=== PATIENT | male | born 1940 | race Hispanic/Latino ===

== ENCOUNTER → 2017-11-05 | Outpatient (CLI) | payer MEDICARE ==
[~2017-11-05] MED LIST: AMIO200T5 PO; CARV3.12 PO; DOXY100T2 PO; FURO40TA5 PO; HYDR-4154 PO; LEVO100T12 PO; LINA5TAB PO; LISI-617 PO; PRAV20TA4 PO; SITA50TA PO; TAMS0.4C32 PO; VITAMIN D PO
== END | disposition home or self-care (01) ==
LOC: SHCH 08:40
PROVIDERS: ATTEND Internal Medicine Cardiovascular Disease
DX: I34.0 Nonrheumatic mitral (valve) insufficiency (principal); I10 Essential (primary) hypertension
CPT/HCPCS: 93306

== ENCOUNTER → 2017-11-07 | Outpatient (CLI) | payer MEDICARE | END | disposition home or self-care (01) | LOC: SHCH 10:22 | PROVIDERS: ATTEND Internal Medicine Cardiovascular Disease | DX: I65.23 Occlusion and stenosis of bilateral carotid arteries (principal) | CPT/HCPCS: 93880 ==

== ENCOUNTER 2017-12-03 06:39 | Day surgery (SDC) | payer MEDICARE ==
[2017-11-29 15:32] VITALS: BP 144/64
[2017-11-29 15:39] LABS: BASOPHILS % (AUTO) 1.2 % (0.0-5.0); EOSINOPHILS % (AUTO) 11.8 % (0.0-8.0); HEMATOCRIT 38.1 % (42-54); LYMPHOCYTES % (AUTO) 17.3 % (21.0-51.0); MEAN CORPUSCULAR HEMOGLOBIN 30.4 pg (27.0-33.0); MEAN CORPUSCULAR HGB CONC 33.3 g/dL (32.0-36.0); MEAN CORPUSCULAR VOLUME 91.3 fL (79-99); MONOCYTES % (AUTO) 11.8 % (3.0-13.0); NEUTROPHILS % (AUTO) 57.9 % (40.0-77.0); PLATELET COUNT (AUTO) 140 K/uL (130-400); RED BLOOD CELL COUNT(AUTO) 4.17 MIL/uL (4.50-6.20); RED CELL DISTRIBUTION WIDTH 14.3 % (11.0-15.5); WHITE BLOOD COUNT (AUTO) 6.5 K/uL (4.8-10.8)
[2017-11-29 15:56] LABS: CREATININE 2.6 mg/dL (0.5-1.5); POTASSIUM 5.9 mmol/L (3.5-5.1)
[2017-11-29 16:17] LABS: INR 0.98 (0.85-1.15); PARTIAL THROMBOPLASTIN TIME 28.1 SEC (26.3-35.5); PROTHROMBIN TIME 10.3 SEC (9.6-11.6)
[2017-12-03] VITALS (16 sets, daily range): BP systolic 109–151; BP diastolic 47–78
[~2017-12-03] VITALS: Ht 172.7 cm; Wt 116.6 kg
[~2017-12-03 06:39] MED LIST changes: -AMIO200T5 PO; -DOXY100T2 PO; -HYDR-4154 PO; -LINA5TAB PO; -LISI-617 PO; +SODIUM CHLORIDE 0.9% 1000ML 1,000 ML IV SCH
[2017-12-03 07:34] LABS: CREATININE 2.3 mg/dL (0.5-1.5); POTASSIUM 5.3 mmol/L (3.5-5.1)
[2017-12-03] MEDS ORDERED: LIDOCAINE HCL 2% VISCOUS 15 ML UDCUP PO ONE (08:30)
[2017-12-03] MEDS ORDERED: ALBUTEROL SULFATE 0.083% 2.5 MG/3 ML INH IH ONE (09:00)
[2017-12-03] MEDS ORDERED: MIDAZOLAM HCL 1 MG/ML 2ML VIAL ONE (09:08)
[2017-12-03] MEDS ORDERED: HYDRALAZINE HCL 20 MG/ML VIAL ONE (09:09)
[2017-12-03] MEDS ORDERED: FENTANYL CITRATE PF 50 MCG/1 ML 2ML VIAL ONE (09:09)
== END 2017-12-03 12:05 | disposition home or self-care (01) ==
LOC: DAH 06:39
PROVIDERS: ATTEND Internal Medicine Cardiovascular Disease
DX: I31.8 Other specified diseases of pericardium (principal); E66.9 Obesity, unspecified; E11.9 Type 2 diabetes mellitus without complications; I10 Essential (primary) hypertension; E78.5 Hyperlipidemia, unspecified; M19.90 Unspecified osteoarthritis, unspecified site; M10.9 Gout, unspecified; E03.9 Hypothyroidism, unspecified; I25.10 Atherosclerotic heart disease of native coronary artery without angina pectoris; Z95.0 Presence of cardiac pacemaker; Z68.39 Body mass index [BMI] 39.0-39.9, adult
CPT/HCPCS: 36415 ×2; 80048 ×2; 82948; 85025; 85610; 85730; 93312; 93325; 94640; A4606; J2250; J3010; 99156; J0360

== ENCOUNTER 2019-03-10 10:07 | Inpatient (IN) | payer MEDICARE | END 2019-03-13 16:15 | disposition home or self-care (01) | LOC: EDH 10:07 → EDHIP 12:58 → 2AH 14:42 | DX: K92.2 Gastrointestinal hemorrhage, unspecified (principal); E44.0 Moderate protein-calorie malnutrition; N18.4 Chronic kidney disease, stage 4 (severe); N17.9 Acute kidney failure, unspecified; I50.22 Chronic systolic (congestive) heart failure; I13.0 Hypertensive heart and chronic kidney disease with heart failure and stage 1 through stage 4 chronic kidney disease, or unspecified chronic kidney disease; D62 Acute posthemorrhagic anemia; I48.92 Unspecified atrial flutter; K92.1 Melena; I12.9 Hypertensive chronic kidney disease with stage 1 through stage 4 chronic kidney disease, or unspecified chronic kidney disease; E11.22 Type 2 diabetes mellitus with diabetic chronic kidney disease; K20.9 Esophagitis, unspecified ==

== ENCOUNTER → 2019-05-06 | Outpatient (CLI) | payer MEDICARE ==
[~2019-05-06] MED LIST changes: +ASCO500T9 PO; +PANT40TA PO; -SODIUM CHLORIDE 0.9% 1000ML 1,000 ML IV SCH
[2019-05-06 13:09] LABS: BASOPHILS % (AUTO) 0.7 % (0.0-5.0); HEMATOCRIT 21.6 % (42-54); MEAN CORPUSCULAR HEMOGLOBIN 23.5 pg (27.0-33.0); MEAN CORPUSCULAR HGB CONC 30.6 g/dL (32.0-36.0); MEAN CORPUSCULAR VOLUME 76.7 fL (79-99); MONOCYTES % (AUTO) 11.5 % (3.0-13.0); NEUTROPHILS % (AUTO) 73.8 % (40.0-77.0); NUCLEATED RED BLOOD CELLS 0.1 % (0.0-0.19); PLATELET COUNT (AUTO) 241 K/uL (130-400); RED BLOOD CELL COUNT(AUTO) 2.82 MIL/uL (4.50-6.20); RED CELL DISTRIBUTION WIDTH 24.4 % (11.0-15.5); WHITE BLOOD COUNT (AUTO) 6.6 K/uL (4.8-10.8)
[2019-05-06 13:16] LABS: CREATININE 2.9 mg/dL (0.5-1.5)
[2019-05-06 13:19] LABS: INR 1.04 (0.85-1.15); PARTIAL THROMBOPLASTIN TIME 30.2 SEC (26.3-35.5); PROTHROMBIN TIME 10.9 SEC (9.6-11.6)
== END | disposition home or self-care (01) ==
LOC: DAH 10:00 → EDSTATUS 12:00
PROVIDERS: ATTEND Internal Medicine Cardiovascular Disease
DX: Z01.818 Encounter for other preprocedural examination (principal); I48.3 Typical atrial flutter; I25.10 Atherosclerotic heart disease of native coronary artery without angina pectoris; I10 Essential (primary) hypertension; E78.00 Pure hypercholesterolemia, unspecified; I48.91 Unspecified atrial fibrillation; Z79.899 Other long term (current) drug therapy; Z95.0 Presence of cardiac pacemaker; Z98.890 Other specified postprocedural states; Z79.01 Long term (current) use of anticoagulants
CPT/HCPCS: 36415; 80048; 85025; 85610; 85730

== ENCOUNTER 2019-11-17 12:05 | Inpatient (IN) | payer MEDICARE ==
[~2019-11-17] VITALS: Ht 170.2 cm; Wt 109.2 kg
[2019-11-17] VITALS (9 sets, daily range): BP systolic 94–120; BP diastolic 50–57
[~2019-11-17 12:05] MED LIST changes: +ASCO500T20 PO; -ASCO500T9 PO
[2019-11-17 12:56] LABS: BASOPHILS % (AUTO) 0.4 % (0.0-5.0); EOSINOPHILS % (AUTO) 4.7 % (0.0-8.0); MEAN CORPUSCULAR HEMOGLOBIN 18.4 pg (27.0-33.0); MEAN CORPUSCULAR HGB CONC 26.2 g/dL (32.0-36.0); MEAN CORPUSCULAR VOLUME 70.4 fL (79-99); MONOCYTES % (AUTO) 16.5 % (3.0-13.0); PLATELET COUNT (AUTO) 216 K/uL (130-400); RED BLOOD CELL COUNT(AUTO) 2.06 MIL/uL (4.50-6.20); RED CELL DISTRIBUTION WIDTH 18.6 % (11.0-15.5); WHITE BLOOD COUNT (AUTO) 5.1 K/uL (4.8-10.8)
[2019-11-17 13:00] LABS: RETICULOCYTE % (AUTO) 2.1 % (0.42-2.23)
[2019-11-17 13:08] LABS: INR 1.17 (0.85-1.15); PARTIAL THROMBOPLASTIN TIME 28.9 SEC (26.3-35.5); PROTHROMBIN TIME 12.6 SEC (9.6-11.6)
[2019-11-17 13:24] LABS: B-TYPE NATRIURETIC PEPTIDE 470 pg/mL (0-100)
[2019-11-17 13:28] LABS: HEMATOCRIT 14.5 % (42-54)
[2019-11-17 13:38] LABS: BILIRUBIN,TOTAL 0.7 mg/dL (0.2-1.0); CREATININE 4.9 mg/dL (0.5-1.5); POTASSIUM 4.5 mmol/L (3.5-5.1); TOTAL PROTEIN, SERUM 6.4 g/dL (6.0-8.3)
[2019-11-17] MEDS ORDERED: ACETAMINOPHEN 325 MG TAB PO PRN (14:15)
[2019-11-17] MEDS ORDERED: ONDANSETRON HCL 4 MG/2 ML VIAL IVP PRN (14:15)
[2019-11-17 14:21] LABS: % IRON SATURATION 2.9 % (30-44)
[2019-11-17] MEDS ORDERED: GLUCAGON 1MG KIT 1 MG ML IM PRN (15:30)
[2019-11-17] MEDS ORDERED: DEXTROSE 50%-WATER 50 ML DISP.SYRIN IV PRN (15:30)
[2019-11-17] MEDS ORDERED: EPOETIN ALFA 10,000 UNIT/ML VIAL SQ SCH (15:45)
[2019-11-17 16:09] LABS: BILIRUBIN,URINE Negative (NEGATIVE); COLOR,URINE Yellow (YELLOW); GLUCOSE, URINE (UA) Negative (NEGATIVE); KETONES,URINE Negative (NEGATIVE); LEUKOCYTE ESTERASE ,URINE Moderate (NEGATIVE); NITRATE,URINE Positive (NEGATIVE); OCCULT BLOOD,URINE Negative (NEGATIVE); PROTEIN,URINE Trace mg/dL (NEGATIVE)
[2019-11-17 16:15] LABS: APPEARANCE,URINE HAZY (CLEAR)
[2019-11-17 16:29] LABS: BACTERIA,URINE Many /HPF (None Seen); RBC,URINE None Seen /HPF (0-1); SQUAMOUS EPITHELIAL CELL,UR 0-2 /HPF (0-2)
[2019-11-17] MEDS: INSULIN HUMULIN R 100 UNIT/ML 3ML SQ SCH ×2 (16:30→21:00)
[2019-11-17] MEDS ORDERED: LACTATED RINGERS 1000ML 1,000 ML IV ONE (17:54)
[2019-11-17] MEDS: CEFTRIAXONE SODIUM 1 GM IVP SCH (18:58)
[2019-11-17] MEDS: OCTREOTIDE ACETATE 500 MCG in SODIUM CHLORIDE 0.9% 97.5 ML IV SCH (18:59)
[2019-11-17] MEDS: PANTOPRAZOLE SODIUM 80 MG in SODIUM CHLORIDE 0.9% 100 ML IV SCH (18:59)
[2019-11-17] MEDS: LACTATED RINGERS 1000ML 1,000 ML IV SCH (18:59)
[2019-11-17] MEDS ORDERED: FUROSEMIDE 10 MG/ML 10ML VIAL IVP STA (19:06)
--- NOTE | 2019-11-17 20:48 | NUR ---
SPOKE TO DAUGHTER BY PHONE. SHE WILL CALL BACK WITH LIST OF HOME MEDICATIONS.
[2019-11-17] MEDS ORDERED: PANTOPRAZOLE SODIUM 40 MG TABLET.DR PO SCH (21:00)
[2019-11-18] VITALS (15 sets, daily range): BP systolic 107–133; BP diastolic 46–155
[2019-11-18] MEDS: PANTOPRAZOLE SODIUM 80 MG in SODIUM CHLORIDE 0.9% 100 ML IV SCH ×2 (00:24→11:47)
[2019-11-18] MEDS: OCTREOTIDE ACETATE 500 MCG in SODIUM CHLORIDE 0.9% 97.5 ML IV SCH (00:25)
[2019-11-18 05:20] LABS: EOSINOPHILS % (AUTO) 3.9 % (0.0-8.0); LYMPHOCYTES % (AUTO) 5.2 % (21.0-51.0); MEAN CORPUSCULAR HEMOGLOBIN 21.5 pg (27.0-33.0); MEAN CORPUSCULAR HGB CONC 28.6 g/dL (32.0-36.0); MEAN CORPUSCULAR VOLUME 74.9 fL (79-99); MONOCYTES % (AUTO) 12.9 % (3.0-13.0); NEUTROPHILS % (AUTO) 76.6 % (40.0-77.0); NUCLEATED RED BLOOD CELLS 0.8 % (0.0-0.19); PLATELET COUNT (AUTO) 192 K/uL (130-400); RED BLOOD CELL COUNT(AUTO) 2.75 MIL/uL (4.50-6.20); RED CELL DISTRIBUTION WIDTH 19.5 % (11.0-15.5); WHITE BLOOD COUNT (AUTO) 5.2 K/uL (4.8-10.8)
[2019-11-18 05:24] LABS: HEMATOCRIT 20.6 % (42-54)
[2019-11-18] MEDS: INSULIN HUMULIN R 100 UNIT/ML 3ML SQ SCH ×4 (05:32→21:00)
[2019-11-18 05:36] LABS: INR 1.16 (0.85-1.15); PARTIAL THROMBOPLASTIN TIME 28.3 SEC (26.3-35.5); PROTHROMBIN TIME 12.5 SEC (9.6-11.6)
[2019-11-18 05:42] LABS: CREATININE 4.5 mg/dL (0.5-1.5); PHOSPHORUS 6.7 mg/dL (2.5-4.9); POTASSIUM 4.5 mmol/L (3.5-5.1)
--- NOTE | 2019-11-18 07:23 | NUR ---
ASSESSMENT ENCOUNTERED PT ASLEEP BUT AROUSEABLE, A&OX3, CALM COOPERATIVE AND DOES NOT APPEAR TO BE IN ANY DISTRESS NOR ANY NEURO DEFICITS PRESENT. PT DENIES PAIN, SOB, NAUSEA. PT IS NPO PENDING EGD BY DR Moses BOYD.
[2019-11-18] MEDS ORDERED: PROPOFOL 10 MG/ML 20ML VIAL IV ONE ×2 (08:20→08:31)
[2019-11-18] MEDS ORDERED: LEVO100 PO (08:23)
[2019-11-18] MEDS ORDERED: FOLI1 PO (08:23)
[2019-11-18] MEDS ORDERED: TAMS-1 PO (08:23)
[2019-11-18] MEDS ORDERED: PANT40TA54 PO (08:23)
[2019-11-18] MEDS ORDERED: CARV6.25 PO (08:23)
--- NOTE | 2019-11-18 08:50 | NUR ---
PATIENT BACK FROM ENDOSCOPY.
[2019-11-18] MEDS: LACTATED RINGERS 1000ML 1,000 ML IV SCH ×2 (09:42→16:58)
[2019-11-18] MEDS ORDERED: TRAMADOL HCL 50 MG TABLET PO SCH (09:45)
[2019-11-18] MEDS ORDERED: FUROSEMIDE 10 MG/ML 4ML VIAL IV SCH (10:30)
[2019-11-18 13:04] LABS: HEMATOCRIT 24.4 % (42-54)
--- NOTE | 2019-11-18 14:20 | NUR ---
REPEAT HGB. DR. JONES MADE AWARE OF HGB OF 7. HE STATED TO REPEAT HGB AND HCT LEVEL AT 1800, AND IF LESS THAN 7, TRANSFUSE 1 UNIT OF PRBCS.
--- NOTE | 2019-11-18 14:40 | NUR ---
DR. HUGH REESE AT BEDSIDE TO ASSESS PATIENT. GAVE ORDERS FOR LAB WORK. ORTHOSTATIC BP WAS CHECKED WITH DR. REESE AT BEDSIDE, NO ORTHOSTATIC CHANGES NOTED. DR. REESE GAVE ORDERS TO TRANSFER PATIENT TO [facility].
[2019-11-18] MEDS ORDERED: PRAV20TA4 PO (14:51)
[2019-11-18] MEDS ORDERED: DOCU-116 PO (14:51)
[2019-11-18] MEDS ORDERED: SITA50TA PO (14:51)
[2019-11-18] MEDS ORDERED: FURO40TA5 PO (14:51)
[2019-11-18] MEDS ORDERED: PREDNISONE 20 MG TABLET PO SCH (15:00)
--- NOTE | 2019-11-18 15:00 | NUR ---
PATIENT SCHEDULED FOR COLONOSCOPY TOMORROW.
[2019-11-18] MEDS: LACTULOSE 20 GM/30 ML UDCUP PO SCH (16:17)
--- NOTE | 2019-11-18 16:40 | NUR ---
TRANSFERRED PATIENT TRANSFERRED TO ROOM 419 AT THIS TIME. PATIENT IN STABLE CONDITION. REPORT GIVEN TO BHAKTI MORENO.
[2019-11-18] MEDS: CEFTRIAXONE SODIUM 1 GM IVP SCH (16:56)
--- NOTE | 2019-11-18 17:10 | NUR ---
INITIAL- CALL WITH SON CALL TO PATIENTS KITA HUNTER STATES PATIENT LVIES ALONE, IS INDEPENDENT IN ADLS. DOES NOT USE DME, AND KITA HUNTER TRANSPORTS . EXPECT DC WILL BE TO HOME. WILL FOLLOW NEEDED
[2019-11-18 18:25] LABS: HEMATOCRIT 25.4 % (42-54)
[2019-11-18 20:46] LABS: HEMATOCRIT 24.3 % (42-54)
[2019-11-18] MEDS: ACETAMINOPHEN-CODEINE 300/30MG TAB PO PRN (20:53)
[2019-11-18] MEDS: IRON SUCROSE COMPLEX 100 MG in SODIUM CHLORIDE 0.9% 50 ML IV SCH (23:22)
[2019-11-19 03:34] VITALS: BP 119/61
[2019-11-19 04:24] LABS: HEMATOCRIT 24.1 % (42-54); MEAN CORPUSCULAR HEMOGLOBIN 22.4 pg (27.0-33.0); MEAN CORPUSCULAR HGB CONC 28.6 g/dL (32.0-36.0); MEAN CORPUSCULAR VOLUME 78.2 fL (79-99); NUCLEATED RED BLOOD CELLS 0.8 % (0.0-0.19); RED BLOOD CELL COUNT(AUTO) 3.08 MIL/uL (4.50-6.20); RED CELL DISTRIBUTION WIDTH 20.5 % (11.0-15.5)
[2019-11-19] MEDS ORDERED: SODIUM CHLORIDE 0.9% 250 ML IV ONE (05:02)
[2019-11-19] MEDS: INSULIN HUMULIN R 100 UNIT/ML 3ML SQ SCH ×4 (05:52→20:49)
[2019-11-19] MEDS: LEVOTHYROXINE 100 MCG TABLET PO SCH (06:03)
[2019-11-19 07:16] LABS: CREATININE 4.3 mg/dL (0.5-1.5); POTASSIUM 4.6 mmol/L (3.5-5.1)
[2019-11-19 08:07] VITALS: BP 121/61
[2019-11-19] MEDS: CEFTRIAXONE SODIUM 1 GM IVP SCH ×2 (08:58→20:47)
[2019-11-19] MEDS: IRON SUCROSE COMPLEX 100 MG in SODIUM CHLORIDE 0.9% 50 ML IV SCH (08:58)
[2019-11-19 11:08] LABS: HEMATOCRIT 25.4 % (42-54)
[2019-11-19 11:49] VITALS: BP 126/62
[2019-11-19] MEDS: PREDNISONE 20 MG TABLET PO SCH (12:45)
[2019-11-19] MEDS: Vitamin B Complex/Vit C/Folic Acid PO SCH (12:45)
[2019-11-19] MEDS: PANTOPRAZOLE SODIUM 40 MG TABLET.DR PO SCH (12:46)
[2019-11-19] MEDS: LACTULOSE 20 GM/30 ML UDCUP PO SCH (15:00)
[2019-11-19] MEDS ORDERED: PEG 3350/NA SULF,BICARB,CL/KCL 4000 ML SOLN PO SCH (16:00)
[2019-11-19 16:36] VITALS: BP 129/61
[2019-11-19 19:44] VITALS: BP 126/69
[2019-11-19] MEDS: LACTATED RINGERS 1000ML 1,000 ML IV SCH ×2 (20:48→23:20)
[2019-11-19 23:08] VITALS: BP 135/69
--- NOTE | 2019-11-19 23:23 | NUR ---
PATIENT COMPLETED ORAL PREP FOR COLONOSCOPY. HE IS AWARE OF PROCEDURE AND NPO AFTER MN. WILL CONT TO MONITOR.
[2019-11-20] VITALS (20 sets, daily range): BP systolic 101–142; BP diastolic 50–86
[2019-11-20] MEDS: LEVOTHYROXINE 100 MCG TABLET PO SCH (05:23)
[2019-11-20] MEDS: INSULIN HUMULIN R 100 UNIT/ML 3ML SQ SCH ×4 (06:54→21:00)
[2019-11-20 08:59] LABS: BASOPHILS % (AUTO) 0.1 % (0.0-5.0); EOSINOPHILS % (AUTO) 0.1 % (0.0-8.0); HEMATOCRIT 25.8 % (42-54); LYMPHOCYTES % (AUTO) 4.8 % (21.0-51.0); MEAN CORPUSCULAR HEMOGLOBIN 23.3 pg (27.0-33.0); MEAN CORPUSCULAR HGB CONC 29.5 g/dL (32.0-36.0); MEAN CORPUSCULAR VOLUME 79.1 fL (79-99); MONOCYTES % (AUTO) 9.6 % (3.0-13.0); NEUTROPHILS % (AUTO) 85.1 % (40.0-77.0); NUCLEATED RED BLOOD CELLS 0.6 % (0.0-0.19); PLATELET COUNT (AUTO) 184 K/uL (130-400); RED BLOOD CELL COUNT(AUTO) 3.26 MIL/uL (4.50-6.20); RED CELL DISTRIBUTION WIDTH 21.2 % (11.0-15.5); WHITE BLOOD COUNT (AUTO) 7.1 K/uL (4.8-10.8)
[2019-11-20] MEDS: CEFTRIAXONE SODIUM 1 GM IVP SCH (09:13)
[2019-11-20] MEDS: IRON SUCROSE COMPLEX 100 MG in SODIUM CHLORIDE 0.9% 50 ML IV SCH (09:14)
[2019-11-20] MEDS: LACTATED RINGERS 1000ML 1,000 ML IV SCH (09:14)
[2019-11-20 09:19] LABS: ALBUMIN 2.8 g/dL (3.5-5.0); ASPARTATE AMINOTRANSFERASE 10 U/L (10-37); BILIRUBIN,TOTAL 0.8 mg/dL (0.2-1.0); CARBON DIOXIDE 26 mmol/L (21-32); CHLORIDE 107 mmol/L (101-111); CREATININE 3.3 mg/dL (0.5-1.5); GLOMERULAR FILTR. RATE CALC 19 mL/min (>60); GLUCOSE,RANDOM 117 mg/dL (70-105); PHOSPHORUS 5.4 mg/dL (2.5-4.9); POTASSIUM 4.3 mmol/L (3.5-5.1); SODIUM SERUM 145 mmol/L (136-145); TOTAL PROTEIN, SERUM 6.4 g/dL (6.0-8.3)
[2019-11-20 09:23] LABS: ALANINE AMINOTRANSFERASE < 6 U/L (12-78); UREA NITROGEN, BLOOD 103 mg/dL (7-18)
--- NOTE | 2019-11-20 10:00 | NUR ---
per Arvin,RN patient was taken down for procedure. Will initiate PT Evaluation 11/21/2019 Addendum: 11/20/19 at 1339 by ALFREDO CHAO, PT PT Amended: Links added.
[2019-11-20] MEDS ORDERED: PROPOFOL 10 MG/ML 20ML VIAL IV ONE (10:49)
[2019-11-20] MEDS ORDERED: LIDOCAINE HCL-MPF 2% 5ML VIAL ONE (10:50)
[2019-11-20] MEDS: PANTOPRAZOLE SODIUM 40 MG TABLET.DR PO SCH (12:36)
[2019-11-20] MEDS: PREDNISONE 20 MG TABLET PO SCH (12:36)
[2019-11-20] MEDS: Vitamin B Complex/Vit C/Folic Acid PO SCH (12:36)
[2019-11-20] MEDS: LACTULOSE 20 GM/30 ML UDCUP PO SCH (13:19)
[2019-11-20 17:03] LABS: RETICULOCYTE % (AUTO) 2.45 % (0.42-2.23)
[2019-11-20] MEDS: CEFDINIR 250MG/5ML 60ML BOTTLE PO SCH (18:00)
[2019-11-20 18:41] LABS: % IRON SATURATION 30.4 % (30-44)
[2019-11-21 04:22] VITALS: BP 130/65
[2019-11-21 04:34] LABS: HEMATOCRIT 25.9 % (42-54); MEAN CORPUSCULAR HEMOGLOBIN 23.7 pg (27.0-33.0); MEAN CORPUSCULAR HGB CONC 29.7 g/dL (32.0-36.0); MEAN CORPUSCULAR VOLUME 79.7 fL (79-99); NUCLEATED RED BLOOD CELLS 0.4 % (0.0-0.19); PLATELET COUNT (AUTO) 161 K/uL (130-400); RED BLOOD CELL COUNT(AUTO) 3.25 MIL/uL (4.50-6.20); RED CELL DISTRIBUTION WIDTH 22.1 % (11.0-15.5); WHITE BLOOD COUNT (AUTO) 6.8 K/uL (4.8-10.8)
[2019-11-21] MEDS: LACTATED RINGERS 1000ML 1,000 ML IV SCH (04:37)
[2019-11-21 04:56] LABS: BAND NEUTROPHILS % (MANUAL) 4 % (0-2); BASOPHILS % (MANUAL) 2 % (0-2); LYMPHOCYTES % (MANUAL) 12 % (22-44); MAN.DIFF COMMENT-IMPRESSION MANUAL DIFFERENTIAL; MONOCYTES % (MANUAL) 4 % (2-9); PLATELET MORPHOLOGY COMMENT ADEQUATE; SEGMENTED NEUTROPHILS % 78 % (40-70)
[2019-11-21 05:39] LABS: CREATININE 2.8 mg/dL (0.5-1.5); PHOSPHORUS 4.4 mg/dL (2.5-4.9); POTASSIUM 4.3 mmol/L (3.5-5.1)
[2019-11-21] MEDS: LEVOTHYROXINE 100 MCG TABLET PO SCH (06:20)
[2019-11-21 07:30] VITALS: BP 161/81
[2019-11-21] MEDS: INSULIN HUMULIN R 100 UNIT/ML 3ML SQ SCH ×4 (07:30→20:30)
[2019-11-21] MEDS: PANTOPRAZOLE SODIUM 40 MG TABLET.DR PO SCH (11:11)
[2019-11-21] MEDS: Vitamin B Complex/Vit C/Folic Acid PO SCH (11:11)
[2019-11-21 11:30] VITALS: BP 159/84
[2019-11-21] MEDS ORDERED: COMPOUND IV MISC 1 EACH IVSOLN MISC PRN (11:45)
[2019-11-21] MEDS: IRON SUCROSE COMPLEX 100 MG in SODIUM CHLORIDE 0.9% 50 ML IV SCH (11:55)
[2019-11-21] MEDS: LACTULOSE 20 GM/30 ML UDCUP PO SCH (12:21)
[2019-11-21 15:30] VITALS: BP 131/76
[2019-11-21] MEDS: CEFDINIR 250MG/5ML 60ML BOTTLE PO SCH (17:12)
[2019-11-21 19:34] VITALS: BP 127/69
[2019-11-22 00:04] VITALS: BP 136/80
[2019-11-22 04:00] VITALS: BP 145/72
[2019-11-22 04:43] LABS: BASOPHILS % (AUTO) 0.4 % (0.0-5.0); EOSINOPHILS % (AUTO) 7.4 % (0.0-8.0); HEMATOCRIT 27.4 % (42-54); LYMPHOCYTES % (AUTO) 5.9 % (21.0-51.0); MEAN CORPUSCULAR HEMOGLOBIN 23.3 pg (27.0-33.0); MEAN CORPUSCULAR HGB CONC 28.8 g/dL (32.0-36.0); MEAN CORPUSCULAR VOLUME 80.8 fL (79-99); MONOCYTES % (AUTO) 12.4 % (3.0-13.0); NEUTROPHILS % (AUTO) 73.5 % (40.0-77.0); PLATELET COUNT (AUTO) 168 K/uL (130-400); RED BLOOD CELL COUNT(AUTO) 3.39 MIL/uL (4.50-6.20); RED CELL DISTRIBUTION WIDTH 23.3 % (11.0-15.5); WHITE BLOOD COUNT (AUTO) 7.5 K/uL (4.8-10.8)
[2019-11-22 04:49] LABS: CREATININE 2.5 mg/dL (0.5-1.5); POTASSIUM 4.1 mmol/L (3.5-5.1)
[2019-11-22] MEDS: LEVOTHYROXINE 100 MCG TABLET PO SCH (06:00)
[2019-11-22] MEDS: INSULIN HUMULIN R 100 UNIT/ML 3ML SQ SCH ×4 (06:00→20:26)
[2019-11-22] MEDS: ACETAMINOPHEN-CODEINE 300/30MG TAB PO PRN ×3 (06:56→23:35)
[2019-11-22 07:00] VITALS: BP 151/77
[2019-11-22] MEDS: PANTOPRAZOLE SODIUM 40 MG TABLET.DR PO SCH (08:53)
[2019-11-22] MEDS: Vitamin B Complex/Vit C/Folic Acid PO SCH (08:53)
[2019-11-22] MEDS: IRON SUCROSE COMPLEX 100 MG in SODIUM CHLORIDE 0.9% 50 ML IV SCH (08:54)
[2019-11-22 11:00] VITALS: BP 127/70
[2019-11-22] MEDS: LACTULOSE 20 GM/30 ML UDCUP PO SCH (13:08)
[2019-11-22 16:00] VITALS: BP 134/76
[2019-11-22] MEDS: CEFDINIR 250MG/5ML 60ML BOTTLE PO SCH (16:15)
[2019-11-22 20:00] VITALS: BP 145/78
[2019-11-23] VITALS: BP 132/67
[2019-11-23 03:50] VITALS: BP 144/76
[2019-11-23 05:12] LABS: CREATININE 2.4 mg/dL (0.5-1.5); INR 1.25 (0.85-1.15); PARTIAL THROMBOPLASTIN TIME 30.7 SEC (26.3-35.5); POTASSIUM 4.2 mmol/L (3.5-5.1); PROTHROMBIN TIME 13.4 SEC (9.6-11.6)
[2019-11-23 06:07] LABS: HEMATOCRIT 29.8 % (42-54); MEAN CORPUSCULAR HEMOGLOBIN 23.7 pg (27.0-33.0); MEAN CORPUSCULAR HGB CONC 28.5 g/dL (32.0-36.0); RED BLOOD CELL COUNT(AUTO) 3.59 MIL/uL (4.50-6.20); WHITE BLOOD COUNT (AUTO) 9.4 K/uL (4.8-10.8)
[2019-11-23] MEDS: LEVOTHYROXINE 100 MCG TABLET PO SCH (06:07)
[2019-11-23] MEDS: INSULIN HUMULIN R 100 UNIT/ML 3ML SQ SCH ×2 (06:21→11:30)
[2019-11-23 08:07] VITALS: BP 133/79
[2019-11-23] MEDS ORDERED: CYANOCOBALAMIN (VITAMIN B-12) 1,000 MCG TABLET PO SCH (09:00)
[2019-11-23] MEDS ORDERED: FOLIC ACID 1 MG TABLET PO SCH (09:00)
[2019-11-23] MEDS: IRON SUCROSE COMPLEX 100 MG in SODIUM CHLORIDE 0.9% 50 ML IV SCH (09:05)
[2019-11-23 10:16] LABS: CRP QUANTITATIVE 43.3 mg/L (0.00-9.0); URIC ACID 13.6 mg/dL (2.6-7.2)
[2019-11-23] MEDS ORDERED: MIDAZOLAM HCL 1 MG/ML 2ML VIAL ONE (10:40)
[2019-11-23] MEDS ORDERED: FENTANYL CITRATE PF 50 MCG/1 ML 2ML VIAL ONE (10:40)
--- NOTE | 2019-11-23 11:05 | NUR ---
CT GD BONE MARROW BX/ASPIRATION PROCEDURE PERFORMED BY DR Heaven GANT. PUNCTURE SITE RT BUTTOCK AND PATIENT TOLERATED PROCEDURE WELL. SPECIMEN X 6 COLLECTED AND SENT TO LAB. END OF PROCEDURE AT 1050. BIOPSY NEEDLE REMOVED AND DRESSING APPLIED. NO BLEEDING NOTED. REPORT GIVEN TO Antwan UMRRIETA RN AND PATIENT TRANSPORTED TO [facility] VIA BED AT 1105. AAO X3 WITH NO C/O PAIN.
--- NOTE | 2019-11-23 11:52 | NUR ---
CALL TO SON- DC PLAN? POSSIBLE NEED FOR SNF, PT NOTES REVIEWED NOTED DECLINE IN FUNCTION. WILL SPEAK TO PATIENT AND SON Addendum: 11/23/19 at 1201 by DONNELL BENITEZ RN CM Amended: Links added.
--- NOTE | 2019-11-23 12:00 | NUR ---
SPOKE TO PT AT BEDSIDE- STATES HE HAD WHEEL CHAIR AND WALKER, AND SHOWER CHAIR, THAT HIS CGRANDSON IS PAID TO LOOK AFTER HIM SO HE WILL GO HOME. WILL DECLINE SNF. Addendum: 11/23/19 at 1201 by DONNELL BENITEZ RN CM Amended: Links added.
[2019-11-23 12:18] VITALS: BP 143/82
[2019-11-23] MEDS: PANTOPRAZOLE SODIUM 40 MG TABLET.DR PO SCH (12:38)
[2019-11-23] MEDS: Vitamin B Complex/Vit C/Folic Acid PO SCH (12:38)
[2019-11-23] MEDS: ACETAMINOPHEN-CODEINE 300/30MG TAB PO PRN (12:39)
[2019-11-23] MEDS ORDERED: CEFD300C3 PO (14:02)
--- NOTE | 2019-11-23 14:36 | NUR ---
ALTHEA SCREEN - LOS X 6 Pt admitted with symptomatic anemia. Diet held at time of screen. Pt pending Bone Marrow Biopsy as per EMR. 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 Altered renal labs. Hx DM. Recommend modify diet to Renal, 75gm CCD. RD to continue to monitor. Please notify as additional nutrition concerns arise. Thank you. Addendum: 11/23/19 at 1439 by [address]O [address] RD Amended: Links added.
[2019-11-23] MEDS: LACTULOSE 20 GM/30 ML UDCUP PO SCH (15:00)
[2019-11-23] MEDS: CEFDINIR 250MG/5ML 60ML BOTTLE PO SCH (15:19)
[2019-11-23 15:43] VITALS: BP 152/79
[2019-11-23] MEDS ORDERED: ALLO100T PO (15:57)
[2019-11-23] MEDS ORDERED: COLC0.6C3 PO (15:57)
[2019-11-23] MEDS ORDERED: COLCHICINE 0.6 MG TABLET PO SCH ×2 (16:55→18:00)
--- NOTE | 2019-11-23 17:01 | NUR ---
WILL SEND ALL PT INFO TO PRIMARY MD TO POSSIBLE EXPEDITE ESTRELLA W PT ON DISCHARGE
--- NOTE | 2019-11-23 17:15 | NUR ---
1700 TRIED TO REACH SON VIA TELEPHONE,TWICE, NO ANSWER. I SPOKE TO ELIN(RN) WHO GAVE ME NUMBER TO RAHUL MCCOLLUM(DAUGHTER) [phone], HE TRIED CALLING DAUGHTERS NUMBER BUT NO ANSWER EITHER.I WAS NOT ABLE TO GET IM LETTER DUE TO PATIENT BEING ON CONTACT ISOLATION AND CONTACT NUMBERS NOT ANSWERING.
--- NOTE | 2019-11-23 18:00 | NUR ---
DISCHARGE INSTRUCTIONS GIVEN TO RAHUL, DAUGHTER IN LAW, PIV REMOVED AND INTACT, DISCHARGED HOME TO FAMILY VEHICLE VIA WHEELCHAIR.
== END 2019-11-23 18:20 | disposition home or self-care (01) | DRG 378 ==
LOC: EDH 12:05 → EDHIP 13:57 → 4CH 14:54 → DAHIP 16:15 → 4CH 11-18 16:48 → 4AH 11-20 12:14 → 4CH 11-20 12:16
PROVIDERS: ADMIT Internal Medicine; ATTEND Internal Medicine
PROC: 0DJ08ZZ Inspection of Upper Intestinal Tract, Via Natural or Artificial Opening Endoscopic (ICD-10-PCS; 2019-11-18)
PROC: 0DJD8ZZ Inspection of Lower Intestinal Tract, Via Natural or Artificial Opening Endoscopic (ICD-10-PCS; 2019-11-20)
PROC: 30233N1 Transfusion of Nonautologous Red Blood Cells into Peripheral Vein, Percutaneous Approach (ICD-10-PCS; principal; 2019-11-23)
PROC: 07DR3ZX Extraction of Iliac Bone Marrow, Percutaneous Approach, Diagnostic (ICD-10-PCS; 2019-11-23)
DX: K92.1 Melena (principal); N17.9 Acute kidney failure, unspecified; D62 Acute posthemorrhagic anemia; I13.0 Hypertensive heart and chronic kidney disease with heart failure and stage 1 through stage 4 chronic kidney disease, or unspecified chronic kidney disease; I50.22 Chronic systolic (congestive) heart failure; N39.0 Urinary tract infection, site not specified; I42.9 Cardiomyopathy, unspecified; E11.22 Type 2 diabetes mellitus with diabetic chronic kidney disease; D63.1 Anemia in chronic kidney disease; E66.01 Morbid (severe) obesity due to excess calories; D46.9 Myelodysplastic syndrome, unspecified; E03.9 Hypothyroidism, unspecified; E78.5 Hyperlipidemia, unspecified; E86.0 Dehydration; I25.10 Atherosclerotic heart disease of native coronary artery without angina pectoris; N18.9 Chronic kidney disease, unspecified; K31.89 Other diseases of stomach and duodenum; K64.0 First degree hemorrhoids; I95.9 Hypotension, unspecified; K57.30 Diverticulosis of large intestine without perforation or abscess without bleeding; D63.8 Anemia in other chronic diseases classified elsewhere; G89.29 Other chronic pain; M10.9 Gout, unspecified; M06.9 Rheumatoid arthritis, unspecified; Z68.37 Body mass index [BMI] 37.0-37.9, adult; Z87.11 Personal history of peptic ulcer disease; Z95.0 Presence of cardiac pacemaker; Z91.19 Patient's noncompliance with other medical treatment and regimen
CPT/HCPCS: 36415; 36430; 38222; 43235; 45378; 71045; 76770; 77012; 80048; 80053; 81001; 82550; 82607; 82728; 82948; 83540; 83550; 83735; 83880; 83883; 84100; 84145; 84300; 84443; 84484; 84540; 84550; 85014; 85018; 85025; 85027; 85045; 85610; 85651; 85730; 86140; 86200; 86334; 86431; 86850; 86880; 86900; 86901; 86922; 87077; 87088; 87186; 88184; 88185; 88305; 88311; 88313; 88341; 88342; 88360; 93005; 93970; 97039; A4606; C9113; G0378; J0696; J0885; J1756; J1815; J1940; J2250; J2354; J2704; J3010; J3490; J7030; J7050; J7120; P9016

== ENCOUNTER → 2019-12-31 | Outpatient (CLI) | payer MEDICARE | END | disposition home or self-care (01) | LOC: RAH 13:29 | PROVIDERS: ATTEND Internal Medicine | DX: M25.532 Pain in left wrist (principal) ==

== ENCOUNTER → 2020-02-18 | Outpatient (CLI) | payer MEDICARE ==
[~2020-02-18] MED LIST changes: +ALLO100T PO; -ASCO500T20 PO; -CARV3.12 PO; +CARV6.25 PO; +CEFD300C3 PO; +COLC0.6C3 PO; +DOCU-116 PO; +ERGO500014 PO; +FOLI0.4T2 PO; +FOLI1 PO; +IRON1CAP32 PO; +LEVO100 PO; -PANT40TA PO; +PANT40TA54 PO; +PRED20TA3 PO; +TAMS-1 PO; -TAMS0.4C32 PO; -VITAMIN D PO
== END | disposition home or self-care (01) ==
LOC: SHCH 09:02
PROVIDERS: ATTEND Internal Medicine Cardiovascular Disease
DX: I08.3 Combined rheumatic disorders of mitral, aortic and tricuspid valves (principal); I42.0 Dilated cardiomyopathy
CPT/HCPCS: 93306; 93356

== ENCOUNTER 2020-03-11 11:36 | Inpatient (IN) | payer MEDICARE ==
[~2020-03-11] VITALS: Ht 170.2 cm; Wt 113.9 kg
[~2020-03-11 11:36] MED LIST changes: -ERGO500014 PO; -FOLI0.4T2 PO; -IRON1CAP32 PO; -LEVO100T12 PO; -PRED20TA3 PO
[2020-03-11 12:39] LABS: BASOPHILS % (AUTO) 0.2 % (0.0-5.0); EOSINOPHILS % (AUTO) 0.8 % (0.0-8.0); HEMATOCRIT 30.4 % (42-54); LYMPHOCYTES % (AUTO) 3.6 % (21.0-51.0); MEAN CORPUSCULAR HEMOGLOBIN 32.6 pg (27.0-33.0); MEAN CORPUSCULAR HGB CONC 32.2 g/dL (32.0-36.0); MONOCYTES % (AUTO) 5.9 % (3.0-13.0); NEUTROPHILS % (AUTO) 88.6 % (40.0-77.0); PLATELET COUNT (AUTO) 144 K/uL (130-400); RED BLOOD CELL COUNT(AUTO) 3.01 MIL/uL (4.50-6.20); RED CELL DISTRIBUTION WIDTH 16.1 % (11.0-15.5); WHITE BLOOD COUNT (AUTO) 10.4 K/uL (4.8-10.8)
[2020-03-11 12:53] LABS: CREATININE 2.2 mg/dL (0.5-1.5)
[2020-03-11 12:54] LABS: INR 1.03 (0.85-1.15); PARTIAL THROMBOPLASTIN TIME 24.5 SEC (26.3-35.5); PROTHROMBIN TIME 11.1 SEC (9.6-11.6)
[2020-03-11 12:58] LABS: ALBUMIN 3.1 g/dL (3.5-5.0); BILIRUBIN,TOTAL 0.4 mg/dL (0.2-1.0)
[2020-03-11 13:18] LABS: APPEARANCE,URINE CLEAR (CLEAR); BILIRUBIN,URINE NEGATIVE (NEGATIVE); COLOR,URINE YELLOW (YELLOW); GLUCOSE, URINE (UA) NEGATIVE (NEGATIVE); KETONES,URINE NEGATIVE (NEGATIVE); LEUKOCYTE ESTERASE ,URINE NEGATIVE (NEGATIVE); NITRATE,URINE NEGATIVE (NEGATIVE); OCCULT BLOOD,URINE NEGATIVE (NEGATIVE); PROTEIN,URINE 100 mg/dL (NEGATIVE); UROBILINOGEN,URINE 0.2 mg/dL (0.2-1.0)
[2020-03-11 14:04] LABS: B-TYPE NATRIURETIC PEPTIDE 508 pg/mL (0-100)
[2020-03-11 14:18] LABS: BACTERIA,URINE Few /HPF (None Seen); RBC,URINE 0-1 /HPF (0-1); WBC,URINE 0-1 /HPF (0-1)
[2020-03-11] MEDS ORDERED: ACETAMINOPHEN 325 MG TAB PO PRN (15:45)
[2020-03-11] MEDS ORDERED: LACTULOSE 20 GM/30 ML UDCUP PO PRN (15:45)
[2020-03-11] MEDS ORDERED: MORPHINE SULFATE 4 MG/1ML SYG IV PRN (15:45)
[2020-03-11] MEDS ORDERED: ZOLPIDEM TARTRATE 5 MG TAB PO PRN (15:45)
[2020-03-11] MEDS ORDERED: ONDANSETRON HCL 4 MG/2 ML VIAL IV PRN (15:45)
[2020-03-11] MEDS ORDERED: FUROSEMIDE 10 MG/ML 4ML VIAL IV STA (16:01)
[2020-03-11] MEDS: INSULIN HUMULIN R 100 UNIT/ML 3ML SQ SCH ×2 (16:30→21:00)
[2020-03-11] MEDS ORDERED: FUROSEMIDE 10 MG/ML 4ML VIAL ONE ×2 (16:57→21:13)
[2020-03-11] MEDS ORDERED: FUROSEMIDE 10 MG/ML 4ML VIAL IV ONE (20:00)
[2020-03-11] MEDS: HEPARIN SODIUM 5000UNIT/ML 1ML VIAL SQ SCH (21:00)
[2020-03-11] MEDS ORDERED: HEPARIN SODIUM 5000UNIT/ML 1ML VIAL ONE (21:13)
[2020-03-11 22:26] VITALS: BP 149/70
[2020-03-12 00:28] VITALS: BP 104/74
[2020-03-12] MEDS ORDERED: IRON1CAP32 PO (02:07)
[2020-03-12] MEDS ORDERED: ALLO100T PO (02:07)
[2020-03-12] MEDS ORDERED: PRED20TA3 PO (02:07)
[2020-03-12] MEDS ORDERED: FOLI0.4T2 PO (02:07)
[2020-03-12] MEDS ORDERED: LEVO100T12 PO (02:07)
[2020-03-12] MEDS ORDERED: PRAV20TA4 PO (02:07)
[2020-03-12] MEDS ORDERED: ERGO500014 PO (02:07)
[2020-03-12] MEDS ORDERED: PANT40TA54 PO (02:07)
[2020-03-12] MEDS ORDERED: SITA50TA PO (02:07)
[2020-03-12] MEDS ORDERED: FURO40TA5 PO (02:07)
[2020-03-12] MEDS ORDERED: TAMS-1 PO (02:07)
[2020-03-12] MEDS ORDERED: CARV6.25 PO (02:07)
[2020-03-12 04:28] VITALS: BP 159/76
[2020-03-12] MEDS: LEVOTHYROXINE 100 MCG TABLET PO SCH (05:31)
[2020-03-12 06:10] LABS: BASOPHILS % (AUTO) 0.5 % (0.0-5.0); EOSINOPHILS % (AUTO) 3.9 % (0.0-8.0); HEMATOCRIT 31.3 % (42-54); LYMPHOCYTES % (AUTO) 7.7 % (21.0-51.0); MEAN CORPUSCULAR HEMOGLOBIN 32.1 pg (27.0-33.0); MEAN CORPUSCULAR HGB CONC 31.6 g/dL (32.0-36.0); MEAN CORPUSCULAR VOLUME 101.6 fL (79-99); MONOCYTES % (AUTO) 13.4 % (3.0-13.0); NEUTROPHILS % (AUTO) 73.7 % (40.0-77.0); PLATELET COUNT (AUTO) 147 K/uL (130-400); RED BLOOD CELL COUNT(AUTO) 3.08 MIL/uL (4.50-6.20); WHITE BLOOD COUNT (AUTO) 7.8 K/uL (4.8-10.8)
[2020-03-12 06:25] LABS: CREATININE 2.6 mg/dL (0.5-1.5); POTASSIUM 5.2 mmol/L (3.5-5.1)
[2020-03-12] MEDS: INSULIN HUMULIN R 100 UNIT/ML 3ML SQ SCH ×4 (06:34→21:00)
[2020-03-12] MEDS ORDERED: LEVOTHYROXINE 100 MCG TABLET PO SCH (07:30)
[2020-03-12 08:22] VITALS: BP 154/75
[2020-03-12] MEDS: CARVEDILOL 6.25 MG TABLET PO SCH ×2 (08:37→21:19)
[2020-03-12] MEDS: HEPARIN SODIUM 5000UNIT/ML 1ML VIAL SQ SCH ×3 (08:38→21:21)
[2020-03-12] MEDS: PANTOPRAZOLE SODIUM 40 MG TABLET.DR PO SCH (08:39)
[2020-03-12] MEDS: FOLIC ACID 1 MG TABLET PO SCH (08:39)
[2020-03-12] MEDS: FERROUS SULFATE 325 MG TABLET.DR PO SCH (08:39)
[2020-03-12] MEDS ORDERED: CARVEDILOL 3.125 MG TABLET PO SCH (09:00)
[2020-03-12] MEDS: INTEGRA PO SCH (09:00)
[2020-03-12] MEDS ORDERED: TAMSULOSIN HCL 0.4 MG CAP.ER.24H PO SCH (09:00)
[2020-03-12] MEDS ORDERED: FUROSEMIDE 40 MG TABLET PO SCH (09:00)
[2020-03-12] MEDS: FUROSEMIDE 40 MG TABLET PO SCH (09:19)
--- NOTE | 2020-03-12 09:57 | NUR ---
notified dr. martinez of the consult for cardiac clearance for this patient. 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 garibay and this patient has history of chf and has pacemaker. dr. martinez said that make sure the patient is in his census as well as dr. garibay or [facility] census.
[2020-03-12 11:33] VITALS: BP 147/81
--- NOTE | 2020-03-12 12:46 | NUR ---
notified dr villa of the consult. no orders given at this time
[2020-03-12 14:53] LABS: APPEARANCE,URINE Clear (CLEAR); BILIRUBIN,URINE Negative (NEGATIVE); COLOR,URINE Yellow (YELLOW); GLUCOSE, URINE (UA) Negative (NEGATIVE); KETONES,URINE Negative (NEGATIVE); LEUKOCYTE ESTERASE ,URINE Trace (NEGATIVE); NITRATE,URINE Negative (NEGATIVE); OCCULT BLOOD,URINE Moderate (NEGATIVE); PH,URINE 5.5 (5.0-8.0); PROTEIN,URINE POS 2+ mg/dL (NEGATIVE); UROBILINOGEN,URINE 0.2 mg/dL (0.2-1.0)
[2020-03-12 15:07] LABS: BACTERIA,URINE Few /HPF (None Seen); SQUAMOUS EPITHELIAL CELL,UR Few /HPF (0-2)
--- NOTE | 2020-03-12 15:20 | NUR ---
dr martinez rounded and saw the patient. explained and discussed with the patient the plan of care. patient agreed to have the surgery. dr. martinez clear the patient for surgery. he verbalized that he will increase the metoprolol. will call dr. mendez to notify him with dr. martinez's standpoint.
--- NOTE | 2020-03-12 15:49 | NUR ---
attempted to call dr. mendez at this time no answer will call back again.
[2020-03-12 16:17] VITALS: BP 101/63
[2020-03-12 20:24] VITALS: BP 169/85
[2020-03-12] MEDS: PRAVASTATIN 20 MG PO SCH (21:00)
[2020-03-12] MEDS: TAMSULOSIN HCL 0.4 MG CAP.ER.24H PO SCH (21:18)
[2020-03-13 00:28] VITALS: BP 166/73
[2020-03-13] MEDS ORDERED: HYDRALAZINE HCL 20 MG/ML VIAL IV PRN (01:15)
[2020-03-13 04:28] VITALS: BP 149/75
[2020-03-13 04:36] LABS: BASOPHILS % (AUTO) 0.6 % (0.0-5.0); HEMATOCRIT 32.9 % (42-54); LYMPHOCYTES % (AUTO) 7.4 % (21.0-51.0); MEAN CORPUSCULAR HEMOGLOBIN 31.6 pg (27.0-33.0); MEAN CORPUSCULAR HGB CONC 31.6 g/dL (32.0-36.0); MONOCYTES % (AUTO) 17.5 % (3.0-13.0); NEUTROPHILS % (AUTO) 67.8 % (40.0-77.0); PLATELET COUNT (AUTO) 142 K/uL (130-400); RED BLOOD CELL COUNT(AUTO) 3.29 MIL/uL (4.50-6.20); WHITE BLOOD COUNT (AUTO) 6.9 K/uL (4.8-10.8)
[2020-03-13 05:01] LABS: CREATININE 2.4 mg/dL (0.5-1.5); PHOSPHORUS 3.2 mg/dL (2.5-4.9); THYROID STIMULATING HORMONE 1.14 uIU/mL (0.36-3.74); URIC ACID 10.1 mg/dL (2.6-7.2)
[2020-03-13 05:11] LABS: B-TYPE NATRIURETIC PEPTIDE 841 pg/mL (0-100)
[2020-03-13] MEDS: INSULIN HUMULIN R 100 UNIT/ML 3ML SQ SCH ×4 (05:43→21:00)
[2020-03-13] MEDS: LEVOTHYROXINE 100 MCG TABLET PO SCH (05:56)
[2020-03-13] MEDS: HYDROCODONE/ACETAMINOPHEN 5/325 MG TAB PO PRN ×2 (06:02→21:09)
[2020-03-13 08:10] VITALS: BP 148/75
[2020-03-13] MEDS: CARVEDILOL 6.25 MG TABLET PO SCH ×2 (09:00→20:31)
[2020-03-13] MEDS: INTEGRA PO SCH (09:00)
[2020-03-13] MEDS: FERROUS SULFATE 325 MG TABLET.DR PO SCH (10:29)
[2020-03-13] MEDS: FOLIC ACID/VITAMIN B COMP W-C 1 CAP TAB PO SCH (10:29)
[2020-03-13] MEDS: FUROSEMIDE 40 MG TABLET PO SCH (10:29)
[2020-03-13] MEDS: PANTOPRAZOLE SODIUM 40 MG TABLET.DR PO SCH (10:29)
[2020-03-13] MEDS: FOLIC ACID 1 MG TABLET PO SCH (10:29)
[2020-03-13] MEDS: HEPARIN SODIUM 5000UNIT/ML 1ML VIAL SQ SCH ×3 (10:35→20:33)
[2020-03-13 11:31] VITALS: BP 133/58
[2020-03-13 15:57] VITALS: BP 140/68
--- NOTE | 2020-03-13 16:14 | NUR ---
DR SANTOS NOTIFIED OF CARDIAC CLEARANCE. STATES DO NOT MAKE NPO, WILL SEE PT IN MORNING AND PLAN SURGERY. PT HAS NOT BEEN TESTED FOR MD ANGEL STATES HE WILL NOT REQUIRE TESTIUBG==
--- NOTE | 2020-03-13 18:51 | NUR ---
Initial: Spoke w pt via phone. Prior to admission he was living w his 22yo grandson. He was using a FWW and his dtr in law assisted him w ADLs. Pt has provider services but is unable to recall #hrs. He has a chair and borrowed a wc. Per pt he prefers to go home at dc but is open to SNF if needed. CM to continue to follow and wait for Md recommendations. Addendum: 03/13/20 at 1853 by ALEXI HERNÁNDEZ CM Amended: Links added.
[2020-03-13 20:28] VITALS: BP 160/75
[2020-03-13] MEDS: TAMSULOSIN HCL 0.4 MG CAP.ER.24H PO SCH (20:30)
[2020-03-13] MEDS: PRAVASTATIN 20 MG PO SCH (20:32)
[2020-03-14] VITALS (7 sets, daily range): BP systolic 104–136; BP diastolic 56–80
[2020-03-14 03:59] LABS: BASOPHILS % (AUTO) 0.2 % (0.0-5.0); EOSINOPHILS % (AUTO) 2.6 % (0.0-8.0); HEMATOCRIT 31.4 % (42-54); MEAN CORPUSCULAR HEMOGLOBIN 32.3 pg (27.0-33.0); MEAN CORPUSCULAR HGB CONC 32.2 g/dL (32.0-36.0); MEAN CORPUSCULAR VOLUME 100.3 fL (79-99); MONOCYTES % (AUTO) 13.4 % (3.0-13.0); NEUTROPHILS % (AUTO) 78.1 % (40.0-77.0); PLATELET COUNT (AUTO) 126 K/uL (130-400); RED BLOOD CELL COUNT(AUTO) 3.13 MIL/uL (4.50-6.20); RED CELL DISTRIBUTION WIDTH 15.7 % (11.0-15.5); WHITE BLOOD COUNT (AUTO) 10.3 K/uL (4.8-10.8)
[2020-03-14 04:28] LABS: CREATININE 2.4 mg/dL (0.5-1.5); POTASSIUM 4.9 mmol/L (3.5-5.1)
[2020-03-14] MEDS: LEVOTHYROXINE 100 MCG TABLET PO SCH (05:48)
[2020-03-14] MEDS: CEFTRIAXONE SODIUM 1 GM IVP SCH (06:46)
[2020-03-14] MEDS: INSULIN HUMULIN R 100 UNIT/ML 3ML SQ SCH ×4 (07:30→20:31)
[2020-03-14] MEDS: INTEGRA PO SCH (09:00)
[2020-03-14] MEDS: PANTOPRAZOLE SODIUM 40 MG TABLET.DR PO SCH (10:53)
[2020-03-14] MEDS: FERROUS SULFATE 325 MG TABLET.DR PO SCH (10:53)
[2020-03-14] MEDS: FOLIC ACID 1 MG TABLET PO SCH (10:53)
[2020-03-14] MEDS: FUROSEMIDE 40 MG TABLET PO SCH (10:53)
[2020-03-14] MEDS: FOLIC ACID/VITAMIN B COMP W-C 1 CAP TAB PO SCH (10:53)
[2020-03-14] MEDS: CARVEDILOL 6.25 MG TABLET PO SCH ×2 (10:54→20:30)
[2020-03-14] MEDS: TAMSULOSIN HCL 0.4 MG CAP.ER.24H PO SCH (20:29)
[2020-03-14] MEDS: HYDROCODONE/ACETAMINOPHEN 5/325 MG TAB PO PRN (20:30)
[2020-03-14] MEDS: PRAVASTATIN 20 MG PO SCH (20:40)
[2020-03-15] VITALS (25 sets, daily range): BP systolic 83–133; BP diastolic 45–95
[2020-03-15] MEDS: CARVEDILOL 6.25 MG TABLET PO SCH ×2 (05:07→21:36)
[2020-03-15] MEDS: CEFTRIAXONE SODIUM 1 GM IVP SCH (05:07)
[2020-03-15] MEDS: LEVOTHYROXINE 100 MCG TABLET PO SCH (05:07)
--- NOTE | 2020-03-15 06:00 | NUR ---
OR PATIENT LEFT TO SURGERY AT THIS TIME. NO SIGNS OF DISTRESS NOTED. Addendum: 03/15/20 at 0652 by PEPPER BOYD RN RN Amended: Links added.
--- NOTE | 2020-03-15 06:10 | NUR ---
PREOP PATIENT ARRIVED VIA BED. PT LAYING COMFORTABLY. PT ORIENTED TO ROOM AND CALL LIGHT
[2020-03-15] MEDS: INSULIN HUMULIN R 100 UNIT/ML 3ML SQ SCH ×4 (06:54→21:00)
[2020-03-15] MEDS ORDERED: SODIUM CHLORIDE 0.9% 1000ML 1,000 ML IV ONE (08:29)
[2020-03-15] MEDS: INTEGRA PO SCH (09:00)
[2020-03-15] MEDS: HYDROCODONE/ACETAMINOPHEN 5/325 MG TAB PO PRN (09:22)
[2020-03-15] MEDS: FUROSEMIDE 40 MG TABLET PO SCH (09:22)
--- NOTE | 2020-03-15 12:00 | NUR ---
NOTE OUT OF ROOM FOR SURGERY AT THIS TIME. HE HAD GONE EARLIER AM BUT DR SANTOS HAD AN EMERGENCY AND HE WAS BROUGHT BACK TO HIS ROOM. WAS MEDICATED FOR C/O RIGHT LEG PAIN.
[2020-03-15] MEDS ORDERED: KETAMINE 50MG/ML SYRINGE 50 MG/ML DISP.SYRIN IV ONE (12:05)
[2020-03-15] MEDS ORDERED: LIDOCAINE PF 2% 5ML ABBOJECT ONE (12:06)
[2020-03-15] MEDS ORDERED: PROPOFOL 10 MG/ML 20ML VIAL IV ONE (12:07)
[2020-03-15] MEDS ORDERED: SUCCINYLCHOLINE CHLORIDE 20 MG/ML 10 ML VIAL ONE (12:34)
[2020-03-15] MEDS ORDERED: ROCURONIUM 10MG/1ML SYR 10 MG/ML ML ONE (12:45)
[2020-03-15] MEDS ORDERED: NEOSTIGMINE 5MG/5ML SYR IV ONE (13:27)
[2020-03-15] MEDS ORDERED: GLYCOPYRROLATE 1 MG/5 ML SYRINGE ONE (13:27)
[2020-03-15] MEDS: FERROUS SULFATE 325 MG TABLET.DR PO SCH (17:43)
[2020-03-15] MEDS: PANTOPRAZOLE SODIUM 40 MG TABLET.DR PO SCH (17:43)
[2020-03-15] MEDS: FOLIC ACID/VITAMIN B COMP W-C 1 CAP TAB PO SCH (17:43)
[2020-03-15] MEDS: FOLIC ACID 1 MG TABLET PO SCH (17:44)
[2020-03-15] MEDS: PRAVASTATIN 20 MG PO SCH (21:00)
[2020-03-15] MEDS: HEPARIN SODIUM 5000UNIT/ML 1ML VIAL SQ SCH (21:36)
[2020-03-15] MEDS: TAMSULOSIN HCL 0.4 MG CAP.ER.24H PO SCH (21:36)
[2020-03-16 04:00] VITALS: BP 107/59
[2020-03-16] MEDS: HEPARIN SODIUM 5000UNIT/ML 1ML VIAL SQ SCH ×3 (05:35→20:47)
[2020-03-16] MEDS: LEVOTHYROXINE 100 MCG TABLET PO SCH (05:35)
[2020-03-16] MEDS: CEFTRIAXONE SODIUM 1 GM IVP SCH (05:35)
[2020-03-16 07:30] VITALS: BP 95/54
[2020-03-16] MEDS: INSULIN HUMULIN R 100 UNIT/ML 3ML SQ SCH ×4 (07:30→20:36)
[2020-03-16] MEDS: INTEGRA PO SCH (09:00)
[2020-03-16] MEDS: CARVEDILOL 6.25 MG TABLET PO SCH (09:00)
[2020-03-16] MEDS: FOLIC ACID 1 MG TABLET PO SCH (10:05)
[2020-03-16] MEDS: FERROUS SULFATE 325 MG TABLET.DR PO SCH (10:05)
[2020-03-16] MEDS: PANTOPRAZOLE SODIUM 40 MG TABLET.DR PO SCH (10:05)
[2020-03-16] MEDS: FUROSEMIDE 40 MG TABLET PO SCH (10:05)
[2020-03-16] MEDS: FOLIC ACID/VITAMIN B COMP W-C 1 CAP TAB PO SCH (10:05)
[2020-03-16 11:00] VITALS: BP 106/45
[2020-03-16 16:00] VITALS: BP 104/54
[2020-03-16 20:00] VITALS: BP 102/49
--- NOTE | 2020-03-16 20:00 | NUR ---
assessment note pATIENT AWAKE, ALERT, OX3, NO SOB, NO C/O PAIN AT THIS TIME, DRESSING RIGHT HIP D/I, ENCOURAGE DEEP BREATHING EXERCISES, ENCOURAGE BLE DORSIFLEXION, TEACH PATIENT PLAN OF CARE AND EXPECTED OUTCOME, PATIENT VERBALIZES UNDERSTANDING VIA TEACH BACK
[2020-03-16] MEDS: CARVEDILOL 3.125 MG TABLET PO SCH (20:37)
[2020-03-16] MEDS: PRAVASTATIN 20 MG PO SCH (20:44)
[2020-03-16] MEDS: TAMSULOSIN HCL 0.4 MG CAP.ER.24H PO SCH (20:44)
[2020-03-16 23:48] VITALS: BP 112/49
[2020-03-17 03:58] VITALS: BP 114/48
[2020-03-17 04:02] LABS: BASOPHILS % (AUTO) 0.3 % (0.0-5.0); EOSINOPHILS % (AUTO) 3.6 % (0.0-8.0); HEMATOCRIT 26.9 % (42-54); LYMPHOCYTES % (AUTO) 7.5 % (21.0-51.0); MEAN CORPUSCULAR HEMOGLOBIN 31.7 pg (27.0-33.0); MEAN CORPUSCULAR HGB CONC 31.6 g/dL (32.0-36.0); MEAN CORPUSCULAR VOLUME 100.4 fL (79-99); MONOCYTES % (AUTO) 13.9 % (3.0-13.0); NEUTROPHILS % (AUTO) 73.9 % (40.0-77.0); PLATELET COUNT (AUTO) 120 K/uL (130-400); RED BLOOD CELL COUNT(AUTO) 2.68 MIL/uL (4.50-6.20); RED CELL DISTRIBUTION WIDTH 15.3 % (11.0-15.5); WHITE BLOOD COUNT (AUTO) 6.1 K/uL (4.8-10.8)
[2020-03-17 04:33] LABS: ALBUMIN 2.3 g/dL (3.5-5.0); CREATININE 3.9 mg/dL (0.5-1.5); POTASSIUM 5.6 mmol/L (3.5-5.1)
--- NOTE | 2020-03-17 04:54 | NUR ---
abnormal labs k+ 5.6, bun 87, called hospitalist application development intern jenniffer granados liner inserter informed of abnormal labs, monitor for now, inform [employer] on the case of abnormal labs when they do rounds this am
[2020-03-17] MEDS: LEVOTHYROXINE 100 MCG TABLET PO SCH (05:12)
[2020-03-17] MEDS: HEPARIN SODIUM 5000UNIT/ML 1ML VIAL SQ SCH ×3 (05:13→22:03)
[2020-03-17] MEDS: CEFTRIAXONE SODIUM 1 GM IVP SCH (05:36)
[2020-03-17] MEDS: INSULIN HUMULIN R 100 UNIT/ML 3ML SQ SCH ×4 (06:03→21:00)
[2020-03-17 08:27] VITALS: BP 110/53
[2020-03-17] MEDS: INTEGRA PO SCH (09:00)
[2020-03-17] MEDS: FERROUS SULFATE 325 MG TABLET.DR PO SCH (09:21)
[2020-03-17] MEDS: FOLIC ACID/VITAMIN B COMP W-C 1 CAP TAB PO SCH (09:21)
[2020-03-17] MEDS: PANTOPRAZOLE SODIUM 40 MG TABLET.DR PO SCH (09:21)
[2020-03-17] MEDS: FOLIC ACID 1 MG TABLET PO SCH (09:21)
[2020-03-17] MEDS: CARVEDILOL 3.125 MG TABLET PO SCH ×2 (09:22→22:01)
[2020-03-17] MEDS: SODIUM POLYSTYRENE SULFONATE 15 GM/60 ML ML PO SCH (09:22)
[2020-03-17] MEDS: HYDROCODONE/ACETAMINOPHEN 5/325 MG TAB PO PRN (09:31)
[2020-03-17] MEDS: SODIUM CHLORIDE 0.9% 1000ML 1,000 ML IV SCH ×2 (10:24→22:35)
[2020-03-17 11:37] VITALS: BP 115/58
[2020-03-17 16:34] VITALS: BP 90/50
--- NOTE | 2020-03-17 18:02 | NUR ---
PER BLADDER SCAN ONLY 63 ML, NON DISTENDED
[2020-03-17 20:28] VITALS: BP 104/53
[2020-03-17] MEDS: PRAVASTATIN 20 MG PO SCH (21:00)
[2020-03-17] MEDS: TAMSULOSIN HCL 0.4 MG CAP.ER.24H PO SCH (22:01)
[2020-03-18 00:32] VITALS: BP 105/52
[2020-03-18 04:07] LABS: BASOPHILS % (AUTO) 0.3 % (0.0-5.0); EOSINOPHILS % (AUTO) 5.1 % (0.0-8.0); HEMATOCRIT 25.9 % (42-54); LYMPHOCYTES % (AUTO) 7.4 % (21.0-51.0); MEAN CORPUSCULAR HEMOGLOBIN 31.2 pg (27.0-33.0); MEAN CORPUSCULAR HGB CONC 31.7 g/dL (32.0-36.0); MEAN CORPUSCULAR VOLUME 98.5 fL (79-99); MONOCYTES % (AUTO) 14.3 % (3.0-13.0); NEUTROPHILS % (AUTO) 72.1 % (40.0-77.0); PLATELET COUNT (AUTO) 135 K/uL (130-400); RED BLOOD CELL COUNT(AUTO) 2.63 MIL/uL (4.50-6.20); RED CELL DISTRIBUTION WIDTH 15.3 % (11.0-15.5); WHITE BLOOD COUNT (AUTO) 6.1 K/uL (4.8-10.8)
[2020-03-18 04:32] VITALS: BP 96/49
[2020-03-18 04:43] LABS: CREATININE 4.2 mg/dL (0.5-1.5); POTASSIUM 5.2 mmol/L (3.5-5.1)
[2020-03-18] MEDS: INSULIN HUMULIN R 100 UNIT/ML 3ML SQ SCH ×4 (06:44→21:00)
[2020-03-18] MEDS: LEVOTHYROXINE 100 MCG TABLET PO SCH (06:49)
[2020-03-18] MEDS: CEFTRIAXONE SODIUM 1 GM IVP SCH (06:49)
[2020-03-18] MEDS: HEPARIN SODIUM 5000UNIT/ML 1ML VIAL SQ SCH ×3 (06:57→21:28)
[2020-03-18 08:18] VITALS: BP 116/49
[2020-03-18] MEDS: SODIUM POLYSTYRENE SULFONATE 15 GM/60 ML ML PO SCH (08:53)
[2020-03-18] MEDS: INTEGRA PO SCH (09:00)
[2020-03-18] MEDS: PANTOPRAZOLE SODIUM 40 MG TABLET.DR PO SCH (11:02)
[2020-03-18] MEDS: FOLIC ACID/VITAMIN B COMP W-C 1 CAP TAB PO SCH (11:03)
[2020-03-18] MEDS: FOLIC ACID 1 MG TABLET PO SCH (11:03)
[2020-03-18] MEDS: MIDODRINE HCL 5 MG TABLET PO SCH ×3 (11:03→21:21)
[2020-03-18] MEDS: FERROUS SULFATE 325 MG TABLET.DR PO SCH (11:03)
[2020-03-18 11:05] VITALS: BP 116/54
[2020-03-18] MEDS: SODIUM CHLORIDE 0.9% 1000ML 1,000 ML IV SCH (11:55)
[2020-03-18 16:39] VITALS: BP 113/57
--- NOTE | 2020-03-18 17:30 | NUR ---
ORDER RECD FOR DC PLANNING PT NOTES REVIEWED, PATIENT NOT DOING WELL W PHYSICAL THERAPY RECED REPORT THAT PATIENT/FAMILY DID NOT WANT TO GO TO A FACILITY LABS REVIEWED, NOTED GFR DECREASE FROM 30 TO 15. WILL DEFER DISCUSSION AT THIS TIME PENDING NEPHROLOGY PLAN AND/OR GFR IMPROVES
[2020-03-18 19:59] VITALS: BP 122/55
--- NOTE | 2020-03-18 20:00 | NUR ---
PATIENT RECEIVED IN BED, AAOX3, EASILY FORGETFUL. PATIENT IS POD#3 RIGHT IM NAILING TO RIGHT COMMINUTED INTERTROCHANTERIC FRACTURE S/P AT HOME. DRESSING NOTED TO BE SOILED, TO BE CHANGED PER MD ORDERS. SR UP x 4, CALL [place] PLACED WITHIN REACH. INSTRUCTED TO CALL FOR ASSISTANCE WHEN NEEDED. DOOR LEFT OPEN AND WILL CONT TO MONITOR CLOSELY. TELE WITH JUD MCGRAW 80.
[2020-03-18] MEDS: PRAVASTATIN 20 MG PO SCH (21:00)
[2020-03-18] MEDS: TAMSULOSIN HCL 0.4 MG CAP.ER.24H PO SCH (21:21)
[2020-03-19] VITALS (7 sets, daily range): BP systolic 126–143; BP diastolic 48–89
[2020-03-19] MEDS: SODIUM CHLORIDE 0.9% 1000ML 1,000 ML IV SCH (01:15)
[2020-03-19 05:38] LABS: BASOPHILS % (AUTO) 0.4 % (0.0-5.0); EOSINOPHILS % (AUTO) 5.4 % (0.0-8.0); HEMATOCRIT 24.1 % (42-54); LYMPHOCYTES % (AUTO) 7.2 % (21.0-51.0); MEAN CORPUSCULAR HEMOGLOBIN 31.4 pg (27.0-33.0); MEAN CORPUSCULAR VOLUME 98.4 fL (79-99); MONOCYTES % (AUTO) 14.5 % (3.0-13.0); NEUTROPHILS % (AUTO) 71.2 % (40.0-77.0); PLATELET COUNT (AUTO) 126 K/uL (130-400); RED BLOOD CELL COUNT(AUTO) 2.45 MIL/uL (4.50-6.20); RED CELL DISTRIBUTION WIDTH 15.3 % (11.0-15.5); WHITE BLOOD COUNT (AUTO) 5.5 K/uL (4.8-10.8)
[2020-03-19] MEDS: INSULIN HUMULIN R 100 UNIT/ML 3ML SQ SCH ×4 (05:52→20:33)
[2020-03-19 05:57] LABS: CREATININE 3.6 mg/dL (0.5-1.5); POTASSIUM 4.5 mmol/L (3.5-5.1)
[2020-03-19] MEDS: CEFTRIAXONE SODIUM 1 GM IVP SCH (06:08)
[2020-03-19] MEDS: LEVOTHYROXINE 100 MCG TABLET PO SCH (06:08)
[2020-03-19 06:09] LABS: % IRON SATURATION 19.3 % (30-44)
[2020-03-19] MEDS: HEPARIN SODIUM 5000UNIT/ML 1ML VIAL SQ SCH ×3 (06:09→21:46)
[2020-03-19] MEDS: PANTOPRAZOLE SODIUM 40 MG TABLET.DR PO SCH (08:47)
[2020-03-19] MEDS: FOLIC ACID 1 MG TABLET PO SCH (08:47)
[2020-03-19] MEDS: FERROUS SULFATE 325 MG TABLET.DR PO SCH (08:47)
[2020-03-19] MEDS: FOLIC ACID/VITAMIN B COMP W-C 1 CAP TAB PO SCH (08:47)
[2020-03-19] MEDS: HYDROCODONE/ACETAMINOPHEN 5/325 MG TAB PO PRN (08:48)
[2020-03-19] MEDS: SODIUM POLYSTYRENE SULFONATE 15 GM/60 ML ML PO SCH (08:49)
[2020-03-19] MEDS: INTEGRA PO SCH (08:49)
[2020-03-19] MEDS: MIDODRINE HCL 5 MG TABLET PO SCH ×3 (09:00→20:30)
[2020-03-19] MEDS ORDERED: COMPOUND IV MISC 1 EACH IVSOLN MISC PRN (14:00)
[2020-03-19] MEDS ORDERED: EPOETIN ALFA 10,000 UNIT/ML VIAL SQ SCH (14:00)
[2020-03-19] MEDS: AMOXICILLIN/POTASSIUM CLAV 500-125 TABLET PO SCH ×2 (16:04→23:37)
[2020-03-19] MEDS: PRAVASTATIN 20 MG PO SCH (20:33)
[2020-03-19] MEDS: TAMSULOSIN HCL 0.4 MG CAP.ER.24H PO SCH (20:33)
[2020-03-20] VITALS (7 sets, daily range): BP systolic 116–158; BP diastolic 59–107
[2020-03-20 04:18] LABS: HEMATOCRIT 28.2 % (42-54); MEAN CORPUSCULAR HEMOGLOBIN 31.4 pg (27.0-33.0); MEAN CORPUSCULAR HGB CONC 31.6 g/dL (32.0-36.0); MEAN CORPUSCULAR VOLUME 99.6 fL (79-99); RED BLOOD CELL COUNT(AUTO) 2.83 MIL/uL (4.50-6.20); WHITE BLOOD COUNT (AUTO) 6.7 K/uL (4.8-10.8)
[2020-03-20 04:34] LABS: ALBUMIN 2.3 g/dL (3.5-5.0); BILIRUBIN,TOTAL 0.5 mg/dL (0.2-1.0); CREATININE 3.8 mg/dL (0.5-1.5); POTASSIUM 4.7 mmol/L (3.5-5.1); TOTAL PROTEIN, SERUM 5.8 g/dL (6.0-8.3)
[2020-03-20] MEDS: INSULIN HUMULIN R 100 UNIT/ML 3ML SQ SCH ×4 (05:58→20:33)
[2020-03-20] MEDS: HEPARIN SODIUM 5000UNIT/ML 1ML VIAL SQ SCH ×3 (06:04→23:17)
[2020-03-20] MEDS: LEVOTHYROXINE 100 MCG TABLET PO SCH (06:04)
[2020-03-20] MEDS: INTEGRA PO SCH (09:00)
[2020-03-20] MEDS: MIDODRINE HCL 5 MG TABLET PO SCH ×3 (09:00→20:33)
[2020-03-20] MEDS: SODIUM POLYSTYRENE SULFONATE 15 GM/60 ML ML PO SCH (09:15)
[2020-03-20] MEDS: IRON SUCROSE COMPLEX 100 MG in SODIUM CHLORIDE 0.9% 50 ML IV SCH (09:58)
[2020-03-20] MEDS: FERROUS SULFATE 325 MG TABLET.DR PO SCH (09:59)
[2020-03-20] MEDS: PANTOPRAZOLE SODIUM 40 MG TABLET.DR PO SCH (09:59)
[2020-03-20] MEDS: FOLIC ACID/VITAMIN B COMP W-C 1 CAP TAB PO SCH (09:59)
[2020-03-20] MEDS: FOLIC ACID 1 MG TABLET PO SCH (09:59)
--- NOTE | 2020-03-20 11:30 | NUR ---
DCP update: Call placed to pt's son Eliud. discussed w him recommendation for SNF. ALAN/PC consent obtained for [facility]. Referral/PASRR faxed to [facility]. Pending COVID test and assessment form. Per Angela able to accept pending COVID test result and assessment form. Primary nurse and CN advised regarding pending test to be ordered.
[2020-03-20] MEDS: AMOXICILLIN/POTASSIUM CLAV 500-125 TABLET PO SCH ×2 (11:39→23:17)
[2020-03-20] MEDS: TAMSULOSIN HCL 0.4 MG CAP.ER.24H PO SCH (20:30)
[2020-03-20] MEDS: PRAVASTATIN 20 MG PO SCH (20:30)
[2020-03-20] MEDS: HYDROCODONE/ACETAMINOPHEN 5/325 MG TAB PO PRN (20:42)
[2020-03-21 03:53] VITALS: BP 140/89
[2020-03-21 04:18] LABS: HEMATOCRIT 26.2 % (42-54); MEAN CORPUSCULAR HEMOGLOBIN 31.8 pg (27.0-33.0); MEAN CORPUSCULAR HGB CONC 32.1 g/dL (32.0-36.0); MEAN CORPUSCULAR VOLUME 99.2 fL (79-99); RED BLOOD CELL COUNT(AUTO) 2.64 MIL/uL (4.50-6.20); RED CELL DISTRIBUTION WIDTH 15.4 % (11.0-15.5)
[2020-03-21 04:42] LABS: ALBUMIN 2.2 g/dL (3.5-5.0); BILIRUBIN,TOTAL 0.6 mg/dL (0.2-1.0); CREATININE 3.4 mg/dL (0.5-1.5); POTASSIUM 4.7 mmol/L (3.5-5.1); TOTAL PROTEIN, SERUM 5.7 g/dL (6.0-8.3)
[2020-03-21] MEDS: LEVOTHYROXINE 100 MCG TABLET PO SCH (06:28)
[2020-03-21] MEDS: HEPARIN SODIUM 5000UNIT/ML 1ML VIAL SQ SCH ×3 (06:28→19:33)
[2020-03-21] MEDS: INSULIN HUMULIN R 100 UNIT/ML 3ML SQ SCH ×4 (06:35→20:11)
[2020-03-21 08:08] VITALS: BP 142/78
[2020-03-21] MEDS: INTEGRA PO SCH (08:40)
[2020-03-21] MEDS: SODIUM POLYSTYRENE SULFONATE 15 GM/60 ML ML PO SCH (09:15)
[2020-03-21] MEDS: HYDROCODONE/ACETAMINOPHEN 5/325 MG TAB PO PRN (09:30)
[2020-03-21] MEDS: FERROUS SULFATE 325 MG TABLET.DR PO SCH (09:31)
[2020-03-21] MEDS: FOLIC ACID/VITAMIN B COMP W-C 1 CAP TAB PO SCH (09:31)
[2020-03-21] MEDS: PANTOPRAZOLE SODIUM 40 MG TABLET.DR PO SCH (09:31)
[2020-03-21] MEDS: FOLIC ACID 1 MG TABLET PO SCH (09:31)
[2020-03-21] MEDS: IRON SUCROSE COMPLEX 100 MG in SODIUM CHLORIDE 0.9% 50 ML IV SCH (09:31)
[2020-03-21] MEDS: MIDODRINE HCL 5 MG TABLET PO SCH ×3 (09:31→19:35)
[2020-03-21] MEDS: AMOXICILLIN/POTASSIUM CLAV 500-125 TABLET PO SCH ×2 (09:32→19:34)
[2020-03-21 11:34] VITALS: BP 125/56
--- NOTE | 2020-03-21 13:08 | NUR ---
CM Note: [facility] acceptance CM spoke to Darshana w/[facility], pt has acceptance, pending covid result prior to transfer. Will fax result and covid transfer form once available. Ordered stat covid today. EMS filled out pending to be faxed w/current date once pt ready to DC. Primary nurse aware. CM to cont to follow up.
[2020-03-21 16:00] VITALS: BP 132/61
[2020-03-21 19:00] VITALS: BP 148/72
[2020-03-21] MEDS: TAMSULOSIN HCL 0.4 MG CAP.ER.24H PO SCH (19:34)
[2020-03-21] MEDS: PRAVASTATIN 20 MG PO SCH (19:35)
[2020-03-22] VITALS: BP_SYST 146; BP_SYST 147; BP_DIAS 65; BP_DIAS 67
[2020-03-22 04:00] VITALS: BP 149/71
[2020-03-22 04:42] LABS: HEMATOCRIT 28.3 % (42-54); MEAN CORPUSCULAR HEMOGLOBIN 31.3 pg (27.0-33.0); MEAN CORPUSCULAR HGB CONC 31.4 g/dL (32.0-36.0); MEAN CORPUSCULAR VOLUME 99.6 fL (79-99); RED BLOOD CELL COUNT(AUTO) 2.84 MIL/uL (4.50-6.20); RED CELL DISTRIBUTION WIDTH 15.2 % (11.0-15.5); WHITE BLOOD COUNT (AUTO) 7.7 K/uL (4.8-10.8)
[2020-03-22] MEDS: LEVOTHYROXINE 100 MCG TABLET PO SCH (05:03)
[2020-03-22] MEDS: HEPARIN SODIUM 5000UNIT/ML 1ML VIAL SQ SCH ×3 (05:04→20:40)
[2020-03-22 05:05] LABS: ALBUMIN 2.3 g/dL (3.5-5.0); BILIRUBIN,TOTAL 0.7 mg/dL (0.2-1.0); CREATININE 3.1 mg/dL (0.5-1.5); POTASSIUM 4.8 mmol/L (3.5-5.1); TOTAL PROTEIN, SERUM 5.9 g/dL (6.0-8.3)
[2020-03-22] MEDS: INSULIN HUMULIN R 100 UNIT/ML 3ML SQ SCH ×4 (05:51→20:36)
[2020-03-22 08:00] VITALS: BP 156/74
[2020-03-22] MEDS: INTEGRA PO SCH (09:00)
[2020-03-22] MEDS: SODIUM POLYSTYRENE SULFONATE 15 GM/60 ML ML PO SCH (09:15)
[2020-03-22] MEDS: FOLIC ACID 1 MG TABLET PO SCH (09:31)
[2020-03-22] MEDS: IRON SUCROSE COMPLEX 100 MG in SODIUM CHLORIDE 0.9% 50 ML IV SCH (09:31)
[2020-03-22] MEDS: FOLIC ACID/VITAMIN B COMP W-C 1 CAP TAB PO SCH (09:31)
[2020-03-22] MEDS: PANTOPRAZOLE SODIUM 40 MG TABLET.DR PO SCH (09:31)
[2020-03-22] MEDS: FERROUS SULFATE 325 MG TABLET.DR PO SCH (09:31)
[2020-03-22] MEDS: MIDODRINE HCL 5 MG TABLET PO SCH ×3 (09:31→20:35)
[2020-03-22 11:36] VITALS: BP 142/59
[2020-03-22] MEDS: AMOXICILLIN/POTASSIUM CLAV 500-125 TABLET PO SCH ×2 (12:24→20:35)
[2020-03-22 16:00] VITALS: BP 148/69
[2020-03-22 20:00] VITALS: BP 129/60
[2020-03-22] MEDS: PRAVASTATIN 20 MG PO SCH (20:35)
[2020-03-22] MEDS: TAMSULOSIN HCL 0.4 MG CAP.ER.24H PO SCH (20:35)
[2020-03-23] VITALS: BP 146/65
[2020-03-23 04:00] VITALS: BP 144/62
[2020-03-23] MEDS: LEVOTHYROXINE 100 MCG TABLET PO SCH (05:03)
[2020-03-23] MEDS: HEPARIN SODIUM 5000UNIT/ML 1ML VIAL SQ SCH (05:05)
[2020-03-23] MEDS: INSULIN HUMULIN R 100 UNIT/ML 3ML SQ SCH ×2 (05:10→11:30)
[2020-03-23 05:46] LABS: HEMATOCRIT 26.6 % (42-54); MEAN CORPUSCULAR HEMOGLOBIN 31.1 pg (27.0-33.0); MEAN CORPUSCULAR HGB CONC 31.6 g/dL (32.0-36.0); MEAN CORPUSCULAR VOLUME 98.5 fL (79-99); RED BLOOD CELL COUNT(AUTO) 2.7 MIL/uL (4.50-6.20); RED CELL DISTRIBUTION WIDTH 15.2 % (11.0-15.5); WHITE BLOOD COUNT (AUTO) 8.5 K/uL (4.8-10.8)
[2020-03-23 08:27] VITALS: BP 156/72
[2020-03-23] MEDS: INTEGRA PO SCH (09:00)
[2020-03-23] MEDS: SODIUM POLYSTYRENE SULFONATE 15 GM/60 ML ML PO SCH (09:15)
[2020-03-23] MEDS: IRON SUCROSE COMPLEX 100 MG in SODIUM CHLORIDE 0.9% 50 ML IV SCH (10:44)
[2020-03-23] MEDS: AMOXICILLIN/POTASSIUM CLAV 500-125 TABLET PO SCH (10:44)
[2020-03-23] MEDS: PANTOPRAZOLE SODIUM 40 MG TABLET.DR PO SCH (10:44)
[2020-03-23] MEDS: FERROUS SULFATE 325 MG TABLET.DR PO SCH (10:45)
[2020-03-23] MEDS: FOLIC ACID/VITAMIN B COMP W-C 1 CAP TAB PO SCH (10:45)
[2020-03-23] MEDS: FOLIC ACID 1 MG TABLET PO SCH (10:45)
[2020-03-23] MEDS: HYDROCODONE/ACETAMINOPHEN 5/325 MG TAB PO PRN (11:06)
[2020-03-23 12:10] VITALS: BP 154/65
[2020-03-23] MEDS ORDERED: APIXABAN 2.5 MG TABLET PO SCH (21:00)
== END 2020-03-23 16:10 | DRG 480 ==
LOC: EDH 11:36 → EDHIP 15:34 → 3BH 20:32
PROVIDERS: ADMIT Internal Medicine; ATTEND Internal Medicine
PROC: 0HQGXZZ Repair Left Hand Skin, External Approach (ICD-10-PCS; 2020-03-11)
PROC: 0QS636Z Reposition Right Upper Femur with Intramedullary Internal Fixation Device, Percutaneous Approach (ICD-10-PCS; principal; 2020-03-15 12:05)
DX: S72.141A Displaced intertrochanteric fracture of right femur, initial encounter for closed fracture (principal); I50.23 Acute on chronic systolic (congestive) heart failure; I42.0 Dilated cardiomyopathy; N39.0 Urinary tract infection, site not specified; N17.9 Acute kidney failure, unspecified; I13.0 Hypertensive heart and chronic kidney disease with heart failure and stage 1 through stage 4 chronic kidney disease, or unspecified chronic kidney disease; I82.611 Acute embolism and thrombosis of superficial veins of right upper extremity; D63.8 Anemia in other chronic diseases classified elsewhere; E11.22 Type 2 diabetes mellitus with diabetic chronic kidney disease; I25.10 Atherosclerotic heart disease of native coronary artery without angina pectoris; N18.9 Chronic kidney disease, unspecified; S61.412A Laceration without foreign body of left hand, initial encounter; Z95.810 Presence of automatic (implantable) cardiac defibrillator; Z87.891 Personal history of nicotine dependence; E66.01 Morbid (severe) obesity due to excess calories; I95.9 Hypotension, unspecified; E87.5 Hyperkalemia; Z20.828 Contact with and (suspected) exposure to other viral communicable diseases; E03.9 Hypothyroidism, unspecified; E78.5 Hyperlipidemia, unspecified; M10.9 Gout, unspecified; W18.30XA Fall on same level, unspecified, initial encounter; N18.3 Chronic kidney disease, stage 3 (moderate); N40.0 Benign prostatic hyperplasia without lower urinary tract symptoms; Z82.49 Family history of ischemic heart disease and other diseases of the circulatory system; Z79.899 Other long term (current) drug therapy; Y93.89 Activity, other specified; Y92.89 Other specified places as the place of occurrence of the external cause; Y99.8 Other external cause status; Z68.39 Body mass index [BMI] 39.0-39.9, adult
CPT/HCPCS: 36415; 70450; 71045; 73502; 73503; 80048; 80053; 81001; 82040; 82550; 82948; 83540; 83550; 83880; 84100; 84132; 84443; 84550; 85025; 85027; 85378; 85610; 85730; 87077; 87088; 87186; 93005; 93970; 97039; G0378; J0330; J0360; J0696; J0885; J1644; J1756; J1815; J1940; J2001; J2270; J2704; J2710; J3490; J7030; U0003

== ENCOUNTER 2020-12-19 11:41 | Inpatient (IN) | payer MEDICARE ==
[~2020-12-19] VITALS: Ht 170.2 cm; Wt 101.4 kg
[~2020-12-19 11:41] MED LIST changes: -CEFD300C3 PO; -COLC0.6C3 PO; -DOCU-116 PO; +ERGO500093 PO; +FOLI0.4T6 PO; -FOLI1 PO; +IRON1CAP32 PO; -LEVO100 PO; +LEVO100T12 PO; +PRED20TA3 PO
[2020-12-19 12:42] VITALS: BP 90/45
[2020-12-19 12:47] LABS: HEMATOCRIT 31.6 % (42-54); MEAN CORPUSCULAR HEMOGLOBIN 30.8 pg (27.0-33.0); MEAN CORPUSCULAR HGB CONC 31.6 g/dL (32.0-36.0); MEAN CORPUSCULAR VOLUME 97.2 fL (79-99); PLATELET COUNT (AUTO) 160 K/uL (130-400); RED BLOOD CELL COUNT(AUTO) 3.25 MIL/uL (4.50-6.20); RED CELL DISTRIBUTION WIDTH 14.7 % (11.0-15.5); WHITE BLOOD COUNT (AUTO) 8.8 K/uL (4.8-10.8)
[2020-12-19 12:57] LABS: ALBUMIN 2.8 g/dL (3.5-5.0); BILIRUBIN,TOTAL 0.4 mg/dL (0.2-1.0); CREATININE 3.6 mg/dL (0.5-1.5); POTASSIUM 4.7 mmol/L (3.5-5.1); TOTAL PROTEIN, SERUM 7.2 g/dL (6.0-8.3)
[2020-12-19] MEDS ORDERED: SODIUM CHLORIDE 0.9% 1000ML 1,000 ML IV SCH (13:00)
[2020-12-19] MEDS ORDERED: ZOSYN 3.375GM +NS 50ML IV ONE (13:00)
[2020-12-19] MEDS ORDERED: SODIUM CHLORIDE 0.9% 100 ML IV ONE (13:06)
[2020-12-19 13:14] LABS: APPEARANCE,URINE TURBID (CLEAR); BILIRUBIN,URINE SMALL (NEGATIVE); COLOR,URINE ORANGE (YELLOW); GLUCOSE, URINE (UA) NEGATIVE (NEGATIVE); KETONES,URINE NEGATIVE (NEGATIVE); LEUKOCYTE ESTERASE ,URINE MODERATE (NEGATIVE); NITRATE,URINE NEGATIVE (NEGATIVE); OCCULT BLOOD,URINE LARGE (NEGATIVE); PROTEIN,URINE 100 mg/dL (NEGATIVE); UROBILINOGEN,URINE 0.2 mg/dL (0.2-1.0)
[2020-12-19] MEDS ORDERED: ZOSYN 3.375GM+NS 50ML 50 ML IV SCH (13:15)
[2020-12-19 13:29] LABS: BAND NEUTROPHILS % (MANUAL) 1 % (0-2); EOSINOPHILS % (MANUAL) 10 % (1-6); LYMPHOCYTES % (MANUAL) 4 % (22-44); MAN.DIFF COMMENT-IMPRESSION MANUAL DIFFERENTIAL; MONOCYTES % (MANUAL) 9 % (2-9); PLATELET MORPHOLOGY COMMENT ADEQUATE; SEGMENTED NEUTROPHILS % 76 % (40-70)
[2020-12-19 13:32] LABS: RBC,URINE >100 /HPF (0-1); WBC,URINE TNTC /HPF (0-1)
[2020-12-19 13:33] LABS: BACTERIA,URINE Few /HPF (None Seen); SQUAMOUS EPITHELIAL CELL,UR Few /HPF (0-2)
[2020-12-19 14:00] VITALS: BP 112/49
[2020-12-19] MEDS ORDERED: ONDANSETRON HCL 4 MG/2 ML VIAL IV PRN (14:00)
[2020-12-19] MEDS ORDERED: LACTULOSE 20 GM/30 ML UDCUP PO PRN (14:00)
[2020-12-19] MEDS ORDERED: ACETAMINOPHEN 325 MG TAB PO PRN ×2 (14:00)
[2020-12-19] MEDS ORDERED: HYDROMORPHONE 0.5 MG SYG (0.5MG/0.5ML) IV PRN (14:15)
[2020-12-19] MEDS: CEFTRIAXONE SODIUM 1 GM IV SCH (14:56)
[2020-12-19] MEDS: INSULIN HUMULIN R 100 UNIT/ML 3ML SQ SCH ×2 (16:30→21:00)
[2020-12-19 16:35] VITALS: BP 117/57
[2020-12-19 17:50] VITALS: BP 113/71
[2020-12-19] MEDS ORDERED: Vitamin B Complex/Vit C/Folic Acid PO ONE (20:15)
[2020-12-19 20:35] VITALS: BP 124/68
[2020-12-19 22:19] VITALS: BP 134/64
[2020-12-20] VITALS (8 sets, daily range): BP systolic 121–149; BP diastolic 50–75
[2020-12-20] MEDS ORDERED: MUPI22O TP (01:54)
[2020-12-20] MEDS ORDERED: TROL100C TP (01:54)
[2020-12-20] MEDS ORDERED: FOLI1 PO (01:54)
[2020-12-20] MEDS ORDERED: APIX5TAB PO (01:54)
[2020-12-20] MEDS: INSULIN HUMULIN R 100 UNIT/ML 3ML SQ SCH ×2 (06:16→11:08)
[2020-12-20 07:08] LABS: BASOPHILS % (AUTO) 0.5 % (0.0-5.0); EOSINOPHILS % (AUTO) 8.9 % (0.0-8.0); HEMATOCRIT 31.6 % (42-54); LYMPHOCYTES % (AUTO) 6.3 % (21.0-51.0); MEAN CORPUSCULAR HEMOGLOBIN 30.3 pg (27.0-33.0); MEAN CORPUSCULAR HGB CONC 30.7 g/dL (32.0-36.0); MEAN CORPUSCULAR VOLUME 98.8 fL (79-99); MONOCYTES % (AUTO) 12.1 % (3.0-13.0); NEUTROPHILS % (AUTO) 71.7 % (40.0-77.0); PLATELET COUNT (AUTO) 155 K/uL (130-400); RED CELL DISTRIBUTION WIDTH 14.6 % (11.0-15.5); WHITE BLOOD COUNT (AUTO) 6.4 K/uL (4.8-10.8)
[2020-12-20 07:24] LABS: CREATININE 3.4 mg/dL (0.5-1.5); MAGNESIUM 2.2 mg/dL (1.80-2.40); PHOSPHORUS 7.3 mg/dL (2.5-4.9); POTASSIUM 4.7 mmol/L (3.5-5.1); URIC ACID 7.6 mg/dL (2.6-7.2)
[2020-12-20 07:29] LABS: % IRON SATURATION 15.8 % (30-44)
[2020-12-20] MEDS ORDERED: PANTOPRAZOLE SODIUM 40 MG TABLET.DR PO SCH (09:00)
[2020-12-20] MEDS ORDERED: EPOETIN ALFA-EPBX (ESRD) 10,000 UNIT/ML VIAL SQ SCH (09:30)
[2020-12-20] MEDS ORDERED: TAMSULOSIN HCL 0.4 MG CAP.ER.24H PO SCH (09:30)
[2020-12-20] MEDS ORDERED: COMPOUND IV MISC 1 EACH IVSOLN MISC PRN (09:30)
[2020-12-20] MEDS: Vitamin B Complex/Vit C/Folic Acid PO SCH (11:07)
[2020-12-20] MEDS: CEFTRIAXONE SODIUM 1 GM IV SCH (11:08)
[2020-12-20] MEDS: SEVELAMER HCL 800 MG TABLET PO SCH ×2 (11:11→17:32)
[2020-12-20] MEDS: IRON SUCROSE COMPLEX 100 MG in SODIUM CHLORIDE 0.9% 50 ML IV SCH (11:11)
[2020-12-20] MEDS: TAMSULOSIN HCL 0.4 MG CAP.ER.24H PO SCH (12:00)
[2020-12-20] MEDS: FAMOTIDINE 20MG TAB 20 MG TAB PO SCH (19:44)
[2020-12-20] MEDS ORDERED: TROLAMINE SALICYLATE CREAM 85 GM TUBE TP SCH (23:15)
[2020-12-20] MEDS ORDERED: SODIUM CHLORIDE 0.9% 1000ML 1,000 ML IV SCH (23:15)
[2020-12-21] VITALS (7 sets, daily range): BP systolic 111–135; BP diastolic 51–73
[2020-12-21] MEDS: PHARMACY COMMUNICATION MISC SCH ×3 (00:15→16:15)
[2020-12-21 04:33] LABS: BASOPHILS % (AUTO) 0.5 % (0.0-5.0); HEMATOCRIT 29.7 % (42-54); LYMPHOCYTES % (AUTO) 9.6 % (21.0-51.0); MEAN CORPUSCULAR HEMOGLOBIN 30.3 pg (27.0-33.0); MEAN CORPUSCULAR VOLUME 97.7 fL (79-99); MONOCYTES % (AUTO) 16.7 % (3.0-13.0); NEUTROPHILS % (AUTO) 62.8 % (40.0-77.0); PLATELET COUNT (AUTO) 136 K/uL (130-400); RED BLOOD CELL COUNT(AUTO) 3.04 MIL/uL (4.50-6.20); RED CELL DISTRIBUTION WIDTH 14.4 % (11.0-15.5); WHITE BLOOD COUNT (AUTO) 5.5 K/uL (4.8-10.8)
[2020-12-21 04:56] LABS: CREATININE 3.3 mg/dL (0.5-1.5); PHOSPHORUS 6.4 mg/dL (2.5-4.9); POTASSIUM 4.8 mmol/L (3.5-5.1)
[2020-12-21] MEDS: LEVOTHYROXINE 100 MCG TABLET PO SCH ×2 (06:26→08:18)
[2020-12-21] MEDS: SEVELAMER HCL 800 MG TABLET PO SCH ×3 (08:18→17:00)
[2020-12-21] MEDS: Vitamin B Complex/Vit C/Folic Acid PO SCH (08:18)
[2020-12-21] MEDS: CARVEDILOL 3.125 MG TABLET PO SCH ×2 (08:18→21:26)
[2020-12-21] MEDS: TAMSULOSIN HCL 0.4 MG CAP.ER.24H PO SCH (08:19)
[2020-12-21] MEDS: INTEGRA PLUS PO SCH (08:21)
[2020-12-21] MEDS: IRON SUCROSE COMPLEX 100 MG in SODIUM CHLORIDE 0.9% 50 ML IV SCH (08:26)
[2020-12-21] MEDS: CEFTRIAXONE SODIUM 1 GM IV SCH (15:26)
[2020-12-21] MEDS: MUPIROCIN OINTMENT 22 GM TUBE TP SCH ×2 (15:27→21:27)
[2020-12-21] MEDS ORDERED: TAMSULOSIN HCL 0.4 MG CAP.ER.24H PO SCH (21:00)
[2020-12-21] MEDS: FAMOTIDINE 20MG TAB 20 MG TAB PO SCH (21:26)
[2020-12-22 03:58] VITALS: BP 113/57
[2020-12-22 04:27] LABS: BASOPHILS % (AUTO) 0.4 % (0.0-5.0); EOSINOPHILS % (AUTO) 9.2 % (0.0-8.0); HEMATOCRIT 29.2 % (42-54); MEAN CORPUSCULAR HEMOGLOBIN 29.6 pg (27.0-33.0); MEAN CORPUSCULAR HGB CONC 29.8 g/dL (32.0-36.0); MEAN CORPUSCULAR VOLUME 99.3 fL (79-99); PLATELET COUNT (AUTO) 138 K/uL (130-400); RED BLOOD CELL COUNT(AUTO) 2.94 MIL/uL (4.50-6.20); RED CELL DISTRIBUTION WIDTH 14.2 % (11.0-15.5); WHITE BLOOD COUNT (AUTO) 5.2 K/uL (4.8-10.8)
[2020-12-22 04:50] LABS: CREATININE 3.2 mg/dL (0.5-1.5); POTASSIUM 4.9 mmol/L (3.5-5.1)
[2020-12-22 07:24] VITALS: BP 130/64
[2020-12-22] MEDS: INTEGRA PLUS PO SCH (07:29)
[2020-12-22] MEDS: SEVELAMER HCL 800 MG TABLET PO SCH ×2 (07:31→12:10)
[2020-12-22] MEDS: CARVEDILOL 3.125 MG TABLET PO SCH (07:31)
[2020-12-22] MEDS: Vitamin B Complex/Vit C/Folic Acid PO SCH (07:31)
[2020-12-22] MEDS: MUPIROCIN OINTMENT 22 GM TUBE TP SCH (07:32)
[2020-12-22] MEDS: TAMSULOSIN HCL 0.4 MG CAP.ER.24H PO SCH (07:32)
[2020-12-22] MEDS: IRON SUCROSE COMPLEX 100 MG in SODIUM CHLORIDE 0.9% 50 ML IV SCH (07:32)
[2020-12-22 11:45] VITALS: BP 133/71
[2020-12-27] MEDS ORDERED: ERGOCALCIFEROL (VITAMIN D2) 50,000 UNIT CAPSULE PO SCH (09:00)
== END 2020-12-22 16:00 | disposition short-term general hospital (02) | DRG 682 ==
LOC: EDH 11:41 → EDHIP 13:52 → OBSVTOIN 13:52 → 4CH 12-20 05:35
PROVIDERS: ADMIT Hospitalist; ATTEND Hospitalist
DX: N17.9 Acute kidney failure, unspecified (principal); I50.23 Acute on chronic systolic (congestive) heart failure; I42.9 Cardiomyopathy, unspecified; I13.0 Hypertensive heart and chronic kidney disease with heart failure and stage 1 through stage 4 chronic kidney disease, or unspecified chronic kidney disease; N30.01 Acute cystitis with hematuria; N18.4 Chronic kidney disease, stage 4 (severe); M10.9 Gout, unspecified; E03.9 Hypothyroidism, unspecified; E78.5 Hyperlipidemia, unspecified; M25.531 Pain in right wrist; D64.9 Anemia, unspecified; F03.90 Unspecified dementia, unspecified severity, without behavioral disturbance, psychotic disturbance, mood disturbance, and anxiety; E66.9 Obesity, unspecified; N40.0 Benign prostatic hyperplasia without lower urinary tract symptoms; E11.22 Type 2 diabetes mellitus with diabetic chronic kidney disease; G89.29 Other chronic pain; M19.90 Unspecified osteoarthritis, unspecified site; N41.9 Inflammatory disease of prostate, unspecified; Z95.0 Presence of cardiac pacemaker; Z87.891 Personal history of nicotine dependence; Z86.73 Personal history of transient ischemic attack (TIA), and cerebral infarction without residual deficits; Z82.49 Family history of ischemic heart disease and other diseases of the circulatory system; Z68.35 Body mass index [BMI] 35.0-35.9, adult; Z86.718 Personal history of other venous thrombosis and embolism; Z79.899 Other long term (current) drug therapy
CPT/HCPCS: 36415; 71045; 73110; 74176; 80048; 80053; 81001; 82728; 82948; 83036; 83540; 83550; 83605; 83735; 83880; 84100; 84145; 84550; 85025; 86850; 86900; 86901; 87040; 87077; 87088; 87186; 93971; 97039; 99291; G0378; J0696; J1756; J2543; J7030

== ENCOUNTER 2021-03-30 10:55 | Inpatient (IN) | payer MEDICARE ==
[~2021-03-30] VITALS: Ht 170.2 cm; Wt 94.4 kg
[~2021-03-30 10:55] MED LIST changes: +APIX5TAB PO; -FOLI0.4T6 PO; +FOLI1 PO; +MUPI22O TP; -PRAV20TA4 PO; -PRED20TA3 PO; +TROL100C TP
[2021-03-30 11:15] VITALS: BP 141/63
[2021-03-30 11:31] LABS: BASOPHILS % (AUTO) 0.5 % (0.0-5.0); EOSINOPHILS % (AUTO) 4.6 % (0.0-8.0); HEMATOCRIT 29.6 % (42-54); LYMPHOCYTES % (AUTO) 7.9 % (21.0-51.0); MEAN CORPUSCULAR HEMOGLOBIN 30.4 pg (27.0-33.0); MEAN CORPUSCULAR HGB CONC 31.1 g/dL (32.0-36.0); MEAN CORPUSCULAR VOLUME 97.7 fL (79-99); MONOCYTES % (AUTO) 11.2 % (3.0-13.0); NEUTROPHILS % (AUTO) 74.4 % (40.0-77.0); PLATELET COUNT (AUTO) 179 K/uL (130-400); RED BLOOD CELL COUNT(AUTO) 3.03 MIL/uL (4.50-6.20); RED CELL DISTRIBUTION WIDTH 14.5 % (11.0-15.5); WHITE BLOOD COUNT (AUTO) 6.3 K/uL (4.8-10.8)
[2021-03-30 11:54] LABS: ALBUMIN 2.6 g/dL (3.5-5.0); BILIRUBIN,TOTAL 0.4 mg/dL (0.2-1.0); CREATININE 2.5 mg/dL (0.5-1.5); TOTAL PROTEIN, SERUM 6.8 g/dL (6.0-8.3)
[2021-03-30 11:56] LABS: POTASSIUM 6.5 mmol/L (3.5-5.1)
[2021-03-30] MEDS ORDERED: CALCIUM GLUC 1GM VIAL 1 GM in 0.9%NACL 100ML 100 ML IV SCH (12:30)
[2021-03-30] MEDS ORDERED: DEXTROSE 50%-WATER 25 GM/50 ML VIAL IV ONE (12:30)
[2021-03-30] MEDS ORDERED: SODIUM BICARB 8.4% 50ML SYRINGE IVP ONE (12:30)
[2021-03-30] MEDS ORDERED: INSULIN HUMULIN R 100 UNIT/ML 3ML IV ONE ×2 (12:30→16:30)
[2021-03-30] MEDS ORDERED: CALCIUM GLUC 1GM VIAL IV ONE (12:31)
[2021-03-30] MEDS ORDERED: SODIUM BICARB 50MEQ 50ML VIAL 50 ML ONE (12:31)
[2021-03-30] MEDS: DEXTROSE 50%-WATER 50 ML DISP.SYRIN IV SCH (12:54)
[2021-03-30] MEDS: KAYEXALATE 15GM/60ML PO SCH ×2 (12:57→14:30)
[2021-03-30] MEDS ORDERED: ONDANSETRON 4MG INJ IV PRN (13:30)
[2021-03-30] MEDS ORDERED: DOCU100C33 PO (15:13)
[2021-03-30 15:19] LABS: HEMATOCRIT 26.6 % (42-54); MEAN CORPUSCULAR HGB CONC 31.6 g/dL (32.0-36.0); MEAN CORPUSCULAR VOLUME 98.2 fL (79-99); RED BLOOD CELL COUNT(AUTO) 2.71 MIL/uL (4.50-6.20); RED CELL DISTRIBUTION WIDTH 14.5 % (11.0-15.5); WHITE BLOOD COUNT (AUTO) 5.8 K/uL (4.8-10.8)
[2021-03-30 15:48] LABS: CREATININE 2.5 mg/dL (0.5-1.5)
[2021-03-30 15:52] LABS: POTASSIUM 6.3 mmol/L (3.5-5.1)
[2021-03-30] MEDS ORDERED: NA ZIRCON CYCLOSIL(LOKELMA 10GM) PO ONE (16:00)
[2021-03-30] MEDS: PANTOPRAZOLE 40 MG/VIAL IVP SCH ×2 (16:11→20:51)
[2021-03-30 16:25] VITALS: BP 140/58
[2021-03-30 16:27] LABS: MAGNESIUM 2.4 mg/dL (1.80-2.40); PHOSPHORUS 3.8 mg/dL (2.5-4.9); URIC ACID 7.3 mg/dL (2.6-7.2)
[2021-03-30] MEDS ORDERED: DEXTROSE 50%-WATER 50 ML DISP.SYRIN IV ONE (16:30)
[2021-03-30] MEDS ORDERED: ALBUTEROL 0.083% 2.5 MG/3 ML INH IH ONE (16:30)
[2021-03-30 20:16] VITALS: BP 136/61
[2021-03-30] MEDS: CARVEDILOL 6.25 MG TABLET PO SCH (20:52)
[2021-03-31 01:39] VITALS: BP 129/55
[2021-03-31 06:13] LABS: BASOPHILS % (AUTO) 0.5 % (0.0-5.0); EOSINOPHILS % (AUTO) 6.3 % (0.0-8.0); HEMATOCRIT 28.1 % (42-54); LYMPHOCYTES % (AUTO) 8.3 % (21.0-51.0); MEAN CORPUSCULAR HEMOGLOBIN 31.1 pg (27.0-33.0); MEAN CORPUSCULAR HGB CONC 31.3 g/dL (32.0-36.0); MEAN CORPUSCULAR VOLUME 99.3 fL (79-99); MONOCYTES % (AUTO) 13.7 % (3.0-13.0); NEUTROPHILS % (AUTO) 70.2 % (40.0-77.0); NUCLEATED RED BLOOD CELLS 0.3 % (0.0-0.19); PLATELET COUNT (AUTO) 186 K/uL (130-400); RED BLOOD CELL COUNT(AUTO) 2.83 MIL/uL (4.50-6.20); RED CELL DISTRIBUTION WIDTH 14.4 % (11.0-15.5); WHITE BLOOD COUNT (AUTO) 5.8 K/uL (4.8-10.8)
[2021-03-31 06:25] LABS: CREATININE 2.4 mg/dL (0.5-1.5); MAGNESIUM 2.3 mg/dL (1.80-2.40)
[2021-03-31 06:28] LABS: POTASSIUM 6.1 mmol/L (3.5-5.1)
[2021-03-31 07:30] VITALS: BP 141/71
[2021-03-31] MEDS ORDERED: KAYEXALATE 15GM/60ML ONE (07:43)
[2021-03-31] MEDS ORDERED: KAYEXALATE 15GM/60ML PO SCH (08:00)
[2021-03-31] MEDS ORDERED: FOLIC ACID 1 MG TABLET PO SCH (09:00)
[2021-03-31] MEDS ORDERED: FAMOTIDINE 20MG VIAL IV SCH (09:00)
[2021-03-31] MEDS ORDERED: CALCIUM GLUC 1GM VIAL IV SCH (09:00)
[2021-03-31] MEDS ORDERED: CALCIUM GLUC 1GM VIAL 1 GM in 0.9%NACL 100ML 100 ML IV SCH (09:00)
[2021-03-31 09:26] VITALS: BP 150/68
[2021-03-31] MEDS: PANTOPRAZOLE 40 MG/VIAL IVP SCH ×2 (10:41→20:47)
[2021-03-31] MEDS: DEXTROSE 50%-WATER 50 ML DISP.SYRIN IV SCH ×2 (10:58→12:13)
[2021-03-31] MEDS: INSULIN HUMULIN R 100 UNIT/ML 3ML IV SCH (11:00)
[2021-03-31] MEDS: CARVEDILOL 6.25 MG TABLET PO SCH ×2 (11:03→20:48)
[2021-03-31 12:00] VITALS: BP 145/77
[2021-03-31 15:47] VITALS: BP 148/80
[2021-03-31] MEDS ORDERED: NA ZIRCON CYCLOSIL(LOKELMA 10GM) PO SCH (19:00)
[2021-03-31] MEDS ORDERED: NA ZIRCON CYCLOSIL(LOKELMA 10GM) PO ONE (19:30)
[2021-03-31 20:00] VITALS: BP 148/80
[2021-03-31] MEDS: TAMSULOSIN HCL 0.4 MG CAP.ER.24H PO SCH (20:52)
[2021-03-31] MEDS: LEVOTHYROXINE 100 MCG TABLET PO SCH (23:24)
[2021-04-01] VITALS (14 sets, daily range): BP systolic 97–139; BP diastolic 38–74
[2021-04-01] MEDS: DEXTROSE 50%-WATER 50 ML DISP.SYRIN IV SCH ×2 (04:20→12:20)
[2021-04-01 04:24] LABS: ALBUMIN 2.4 g/dL (3.5-5.0); BILIRUBIN,TOTAL 0.5 mg/dL (0.2-1.0); CREATININE 2.1 mg/dL (0.5-1.5); POTASSIUM 4.7 mmol/L (3.5-5.1); TOTAL PROTEIN, SERUM 6.1 g/dL (6.0-8.3)
[2021-04-01] MEDS: INSULIN HUMULIN R 100 UNIT/ML 3ML IV SCH (06:19)
[2021-04-01] MEDS: PANTOPRAZOLE 40 MG/VIAL IVP SCH ×2 (09:12→20:41)
[2021-04-01] MEDS: CARVEDILOL 6.25 MG TABLET PO SCH ×2 (09:12→20:41)
[2021-04-01] MEDS ORDERED: PROPOFOL 10 MG/ML 20ML VIAL IV ONE (10:25)
[2021-04-01] MEDS ORDERED: PHENYLEPHRINE HCL 10 MG/ML 1ML VIAL IV ONE (10:26)
[2021-04-01] MEDS ORDERED: GLYCOPYRROLATE 1 MG/5 ML SYRINGE ONE (10:26)
[2021-04-01 10:27] LABS: BASOPHILS % (AUTO) 0.2 % (0.0-5.0); EOSINOPHILS % (AUTO) 5.2 % (0.0-8.0); HEMATOCRIT 27.9 % (42-54); LYMPHOCYTES % (AUTO) 8.1 % (21.0-51.0); MEAN CORPUSCULAR HEMOGLOBIN 30.6 pg (27.0-33.0); MEAN CORPUSCULAR HGB CONC 30.8 g/dL (32.0-36.0); MEAN CORPUSCULAR VOLUME 99.3 fL (79-99); MONOCYTES % (AUTO) 12.2 % (3.0-13.0); NEUTROPHILS % (AUTO) 73.5 % (40.0-77.0); PLATELET COUNT (AUTO) 176 K/uL (130-400); RED BLOOD CELL COUNT(AUTO) 2.81 MIL/uL (4.50-6.20); RED CELL DISTRIBUTION WIDTH 14.2 % (11.0-15.5); WHITE BLOOD COUNT (AUTO) 4.8 K/uL (4.8-10.8)
[2021-04-01] MEDS ORDERED: LIDOCAINE HCL 1% 20 ML VIAL ONE (10:40)
[2021-04-01] MEDS ORDERED: PEG 3350/NA SULF,BICARB,CL/KCL 4000 ML SOLN PO SCH (13:00)
[2021-04-01] MEDS: TAMSULOSIN HCL 0.4 MG CAP.ER.24H PO SCH (20:42)
[2021-04-02] VITALS (13 sets, daily range): BP systolic 79–164; BP diastolic 50–76
[2021-04-02 04:46] LABS: BASOPHILS % (AUTO) 0.6 % (0.0-5.0); EOSINOPHILS % (AUTO) 4.4 % (0.0-8.0); HEMATOCRIT 29.6 % (42-54); MEAN CORPUSCULAR HEMOGLOBIN 31.3 pg (27.0-33.0); MEAN CORPUSCULAR HGB CONC 31.8 g/dL (32.0-36.0); MEAN CORPUSCULAR VOLUME 98.7 fL (79-99); MONOCYTES % (AUTO) 15.7 % (3.0-13.0); NEUTROPHILS % (AUTO) 70.5 % (40.0-77.0); PLATELET COUNT (AUTO) 190 K/uL (130-400); RED CELL DISTRIBUTION WIDTH 14.2 % (11.0-15.5); WHITE BLOOD COUNT (AUTO) 5.2 K/uL (4.8-10.8)
[2021-04-02 05:03] LABS: CREATININE 2.1 mg/dL (0.5-1.5); POTASSIUM 5.2 mmol/L (3.5-5.1)
[2021-04-02] MEDS ORDERED: PHARMACY COMMUNICATION MISC SCH (06:30)
[2021-04-02] MEDS: INSULIN HUMULIN R 100 UNIT/ML 3ML IV SCH (07:38)
[2021-04-02] MEDS: DEXTROSE 50%-WATER 50 ML DISP.SYRIN IV SCH ×2 (07:39→11:36)
[2021-04-02] MEDS: LEVOTHYROXINE 100 MCG TABLET PO SCH (08:04)
[2021-04-02] MEDS: PANTOPRAZOLE 40 MG/VIAL IVP SCH ×2 (08:04→20:17)
[2021-04-02] MEDS: NA ZIRCON CYCLOSIL(LOKELMA 10GM) PO NR ×2 (08:04→19:03)
[2021-04-02] MEDS: CARVEDILOL 6.25 MG TABLET PO SCH ×2 (08:05→20:18)
[2021-04-02] MEDS ORDERED: PROPOFOL 10 MG/ML 20ML VIAL IV ONE (12:37)
[2021-04-02] MEDS ORDERED: EPHEDRINE SULFATE 50 MG/ML AMPULE ONE (12:57)
[2021-04-02] MEDS: TAMSULOSIN HCL 0.4 MG CAP.ER.24H PO SCH (20:17)
[2021-04-03 00:37] LABS: APPEARANCE,URINE Clear (CLEAR); BILIRUBIN,URINE Negative (NEGATIVE); COLOR,URINE Yellow (YELLOW); GLUCOSE, URINE (UA) TRACE mg/dL (NEGATIVE); KETONES,URINE Negative (NEGATIVE); LEUKOCYTE ESTERASE ,URINE Small (NEGATIVE); NITRATE,URINE Negative (NEGATIVE); OCCULT BLOOD,URINE Negative (NEGATIVE); PH,URINE 6.5 (5.0-8.0); PROTEIN,URINE POS 2+ mg/dL (NEGATIVE); UROBILINOGEN,URINE 0.2 mg/dL (0.2-1.0)
[2021-04-03 01:11] LABS: CREATININE,URINE RANDOM 42 mg/dL (30-135)
[2021-04-03 01:14] LABS: BACTERIA,URINE None Seen /HPF (None Seen); WBC,URINE 0-1 /HPF (0-1)
[2021-04-03 01:15] LABS: SQUAMOUS EPITHELIAL CELL,UR Rare /HPF (0-2)
[2021-04-03 01:23] LABS: SODIUM,URINE RANDOM 78 mmol/l (40-220)
[2021-04-03 03:20] VITALS: BP 123/55
[2021-04-03 04:42] LABS: BASOPHILS % (AUTO) 0.6 % (0.0-5.0); EOSINOPHILS % (AUTO) 3.2 % (0.0-8.0); HEMATOCRIT 26.6 % (42-54); LYMPHOCYTES % (AUTO) 6.7 % (21.0-51.0); MEAN CORPUSCULAR HEMOGLOBIN 30.4 pg (27.0-33.0); MEAN CORPUSCULAR HGB CONC 31.6 g/dL (32.0-36.0); MEAN CORPUSCULAR VOLUME 96.4 fL (79-99); NEUTROPHILS % (AUTO) 72.9 % (40.0-77.0); PLATELET COUNT (AUTO) 167 K/uL (130-400); RED BLOOD CELL COUNT(AUTO) 2.76 MIL/uL (4.50-6.20); RED CELL DISTRIBUTION WIDTH 13.8 % (11.0-15.5)
[2021-04-03 05:01] LABS: POTASSIUM 4.7 mmol/L (3.5-5.1)
[2021-04-03] MEDS: LEVOTHYROXINE 100 MCG TABLET PO SCH (05:45)
[2021-04-03] MEDS: DEXTROSE 50%-WATER 50 ML DISP.SYRIN IV SCH ×2 (06:44→06:45)
[2021-04-03] MEDS: INSULIN HUMULIN R 100 UNIT/ML 3ML IV SCH (06:45)
[2021-04-03 07:41] VITALS: BP 129/61
[2021-04-03] MEDS: PANTOPRAZOLE 40 MG/VIAL IVP SCH ×2 (08:19→20:32)
[2021-04-03] MEDS: CARVEDILOL 6.25 MG TABLET PO SCH ×2 (08:20→20:39)
[2021-04-03 11:47] VITALS: BP 131/61
[2021-04-03] MEDS: INSULIN HUMULIN R 100 UNIT/ML 3ML SQ SCH ×2 (15:59→20:40)
[2021-04-03] MEDS ORDERED: GLUCAGON 1MG KIT 1 MG ML IM PRN (16:00)
[2021-04-03] MEDS ORDERED: DEXTROSE 50%-WATER 50 ML DISP.SYRIN IV PRN (16:00)
[2021-04-03 16:15] VITALS: BP 130/55
[2021-04-03] MEDS: FUROSEMIDE 40 MG TABLET PO SCH (16:23)
[2021-04-03 19:45] VITALS: BP 125/56
[2021-04-03] MEDS: TAMSULOSIN HCL 0.4 MG CAP.ER.24H PO SCH (20:33)
[2021-04-03] MEDS ORDERED: FUROSEMIDE 40 MG TABLET PO SCH (21:00)
[2021-04-03 23:18] VITALS: BP 133/68
[2021-04-04 03:05] VITALS: BP 125/57
[2021-04-04 05:02] LABS: HEMATOCRIT 26.4 % (42-54); MEAN CORPUSCULAR HEMOGLOBIN 30.4 pg (27.0-33.0); MEAN CORPUSCULAR HGB CONC 31.1 g/dL (32.0-36.0); MEAN CORPUSCULAR VOLUME 97.8 fL (79-99); RED BLOOD CELL COUNT(AUTO) 2.7 MIL/uL (4.50-6.20); RED CELL DISTRIBUTION WIDTH 13.7 % (11.0-15.5); WHITE BLOOD COUNT (AUTO) 5.1 K/uL (4.8-10.8)
[2021-04-04 05:13] LABS: CREATININE 2.3 mg/dL (0.5-1.5); PHOSPHORUS 4.2 mg/dL (2.5-4.9); POTASSIUM 4.7 mmol/L (3.5-5.1)
[2021-04-04] MEDS: NA ZIRCON CYCLOSIL(LOKELMA 10GM) PO NR (05:58)
[2021-04-04] MEDS: INSULIN HUMULIN R 100 UNIT/ML 3ML SQ SCH ×2 (06:07→11:18)
[2021-04-04] MEDS ORDERED: LEVOTHYROXINE 100 MCG TABLET PO SCH (06:30)
[2021-04-04 07:42] VITALS: BP 126/55
[2021-04-04] MEDS ORDERED: COMPOUND IV MISC 1 EACH IVSOLN MISC PRN (08:00)
[2021-04-04] MEDS: PANTOPRAZOLE 40 MG/VIAL IVP SCH (08:08)
[2021-04-04] MEDS: FUROSEMIDE 40 MG TABLET PO SCH (08:09)
[2021-04-04] MEDS: CARVEDILOL 6.25 MG TABLET PO SCH (08:09)
[2021-04-04 08:23] LABS: RETICULOCYTE % (AUTO) 2.19 % (0.42-2.23)
[2021-04-04] MEDS ORDERED: EPOETIN ALFA-EPBX (NON-ESRD) 10,000 UNIT/ML VIAL SQ SCH (08:30)
[2021-04-04] MEDS ORDERED: IRON SUCROSE COMPLEX 500 MG in 0.9%NACL 50ML 50 ML IV SCH (09:00)
[2021-04-04] MEDS ORDERED: IRON SUCROSE COMPLEX 300 MG in 0.9%NACL 50ML 50 ML IV SCH (09:00)
[2021-04-04 11:33] VITALS: BP 127/49
[2021-04-04] MEDS ORDERED: CARV6.2579 PO (12:43)
== END 2021-04-04 15:02 | disposition home or self-care (01) | DRG 377 ==
LOC: EDH 10:55 → EDHIP 13:03 → 4AH 03-31 08:43 → 2AH 04-01 03:48
PROVIDERS: ADMIT Internal Medicine; ATTEND Internal Medicine
PROC: 0DJ08ZZ Inspection of Upper Intestinal Tract, Via Natural or Artificial Opening Endoscopic (ICD-10-PCS; 2021-04-01)
PROC: 0D5H8ZZ Destruction of Cecum, Via Natural or Artificial Opening Endoscopic (ICD-10-PCS; principal; 2021-04-02)
DX: K55.21 Angiodysplasia of colon with hemorrhage (principal); U07.1 COVID-19; J12.82 Pneumonia due to coronavirus disease 2019; N17.9 Acute kidney failure, unspecified; I13.0 Hypertensive heart and chronic kidney disease with heart failure and stage 1 through stage 4 chronic kidney disease, or unspecified chronic kidney disease; E87.2 Acidosis; D62 Acute posthemorrhagic anemia; I50.22 Chronic systolic (congestive) heart failure; N18.4 Chronic kidney disease, stage 4 (severe); K57.31 Diverticulosis of large intestine without perforation or abscess with bleeding; E87.5 Hyperkalemia; E03.9 Hypothyroidism, unspecified; E78.5 Hyperlipidemia, unspecified; M10.9 Gout, unspecified; N40.0 Benign prostatic hyperplasia without lower urinary tract symptoms; I99.8 Other disorder of circulatory system; E11.22 Type 2 diabetes mellitus with diabetic chronic kidney disease; E87.8 Other disorders of electrolyte and fluid balance, not elsewhere classified; E78.00 Pure hypercholesterolemia, unspecified; I25.10 Atherosclerotic heart disease of native coronary artery without angina pectoris; Z79.4 Long term (current) use of insulin; Z95.1 Presence of aortocoronary bypass graft; Z91.11 Patient's noncompliance with dietary regimen; Z91.19 Patient's noncompliance with other medical treatment and regimen; Z82.49 Family history of ischemic heart disease and other diseases of the circulatory system
CPT/HCPCS: 36415; 43235; 45382; 71045; 76770; 80048; 80053; 81001; 82150; 82270; 82570; 82607; 82728; 82746; 82948; 83036; 83540; 83550; 83690; 83735; 83880; 84100; 84132; 84300; 84550; 85014; 85018; 85025; 85027; 85045; 85378; 86140; 86850; 86900; 86901; 87077; 87088; 87186; 87635; 88305; 93005; 94640; 94760; A4606; C9113; G0378; J0610; J1756; J1815; J2370; J2704; J3490; J7030; J7070

== ENCOUNTER 2022-02-28 11:23 | Inpatient (IN) | payer MEDICARE ==
[~2022-02-28] VITALS: Ht 172.7 cm; Wt 77.1 kg
[2022-02-28] VITALS (14 sets, daily range): BP systolic 100–140; BP diastolic 44–61
[~2022-02-28 11:23] MED LIST changes: -APIX5TAB PO; +BIMA12.5OS OD; -CARV6.25 PO; -ERGO500093 PO; -FURO40TA5 PO; -IRON1CAP32 PO; -LEVO100T12 PO; -MUPI22O TP; +OLOP5DRO26 OP; -PANT40TA54 PO; +PRAV20TA4 PO; -SITA50TA PO; -TROL100C TP
[2022-02-28 12:10] LABS: BASOPHILS % (AUTO) 0.8 % (0.0-5.0); EOSINOPHILS % (AUTO) 3.3 % (0.0-8.0); HEMATOCRIT 28.5 % (42-54); LYMPHOCYTES % (AUTO) 8.5 % (21.0-51.0); MEAN CORPUSCULAR HEMOGLOBIN 33.1 pg (27.0-33.0); MEAN CORPUSCULAR HGB CONC 31.9 g/dL (32.0-36.0); MEAN CORPUSCULAR VOLUME 103.6 fL (79-99); MONOCYTES % (AUTO) 12.2 % (3.0-13.0); NEUTROPHILS % (AUTO) 74.8 % (40.0-77.0); PLATELET COUNT (AUTO) 99 K/uL (130-400); RED BLOOD CELL COUNT(AUTO) 2.75 MIL/uL (4.50-6.20); RED CELL DISTRIBUTION WIDTH 14.7 % (11.0-15.5); WHITE BLOOD COUNT (AUTO) 5.2 K/uL (4.8-10.8)
[2022-02-28 12:47] LABS: APPEARANCE,URINE TURBID (CLEAR); BILIRUBIN,URINE NEGATIVE (NEGATIVE); COLOR,URINE YELLOW (YELLOW); GLUCOSE, URINE (UA) NEGATIVE (NEGATIVE); KETONES,URINE NEGATIVE (NEGATIVE); LEUKOCYTE ESTERASE ,URINE MODERATE (NEGATIVE); NITRATE,URINE NEGATIVE (NEGATIVE); OCCULT BLOOD,URINE LARGE (NEGATIVE); PH,URINE 5.5 (5.0-8.0); PROTEIN,URINE 100 mg/dL (NEGATIVE); UROBILINOGEN,URINE 0.2 mg/dL (0.2-1.0)
[2022-02-28 12:54] LABS: BACTERIA,URINE Many /HPF (None Seen); SQUAMOUS EPITHELIAL CELL,UR Rare /HPF (0-2); WBC,URINE TNTC /HPF (0-1)
[2022-02-28 13:01] LABS: ALBUMIN 3.7 g/dL (3.5-5.0)
[2022-02-28 13:07] LABS: TOTAL PROTEIN, SERUM 7.8 g/dL (6.0-8.3)
[2022-02-28] MEDS ORDERED: SODIUM CHLORIDE 3% 500 ML IV PRN (13:30)
[2022-02-28 13:35] LABS: CREATININE 4.9 mg/dL (0.5-1.5)
[2022-02-28 13:46] LABS: POTASSIUM 8.4 mmol/L (3.5-5.1)
[2022-02-28 13:49] LABS: POTASSIUM 8.2 mmol/L (3.5-5.1)
[2022-02-28] MEDS ORDERED: SODIUM BICARB 50MEQ 50ML VIAL 50 ML ONE ×2 (13:58→23:23)
[2022-02-28] MEDS ORDERED: INSULIN HUMULIN R 100 UNIT/ML 3ML IV ONE ×3 (14:00→23:30)
[2022-02-28] MEDS ORDERED: ALBUTEROL 0.083% 2.5 MG/3 ML INH IH ONE ×2 (14:00→16:00)
[2022-02-28] MEDS ORDERED: 0.9%NACL 1000ML 1,000 ML IV ONE ×2 (14:00→16:30)
[2022-02-28] MEDS ORDERED: CALCIUM GLUC 1GM 1 GM in 0.9%NACL 100ML 100 ML IV SCH ×2 (14:00→16:00)
[2022-02-28] MEDS: SODIUM BICARB 8.4% 50ML SYRINGE IVP SCH (14:04)
[2022-02-28] MEDS ORDERED: CALCIUM GLUC 1GM/10ML VIAL ONE (14:05)
[2022-02-28] MEDS ORDERED: DEXTROSE 50%-WATER 50 ML DISP.SYRIN IV ONE ×7 (14:08→23:30)
[2022-02-28] MEDS: ZOSYN 3.375GM +NS 50ML IV SCH (14:57)
[2022-02-28] MEDS ORDERED: PANT40GR PO (14:58)
[2022-02-28] MEDS ORDERED: METO5TAB2 PO (14:58)
[2022-02-28] MEDS ORDERED: FURO20TA4 PO (14:58)
[2022-02-28] MEDS ORDERED: SPIR25TA6 PO (14:58)
[2022-02-28] MEDS ORDERED: LACT10SO9 PO (14:58)
[2022-02-28] MEDS ORDERED: LATA2.5D14 OP (14:58)
[2022-02-28] MEDS ORDERED: RIFA550T PO (14:58)
[2022-02-28] MEDS ORDERED: FINA5TAB41 PO (14:58)
[2022-02-28] MEDS ORDERED: LEVO100C4 PO (14:58)
[2022-02-28] MEDS: ALBUTEROL 0.083% 2.5 MG/3 ML INH IH SCH ×3 (15:00→22:12)
[2022-02-28] MEDS ORDERED: 0.9%NACL 1000ML 1,000 ML IV SCH ×4 (15:00→16:30)
[2022-02-28] MEDS ORDERED: ALBUTEROL 0.083% 2.5 MG/3 ML INH IH PRN (15:00)
[2022-02-28 15:39] LABS: MAGNESIUM 2.5 mg/dL (1.80-2.40); PHOSPHORUS 6.2 mg/dL (2.5-4.9)
[2022-02-28 15:40] LABS: POTASSIUM 6.1 mmol/L (3.5-5.1)
[2022-02-28] MEDS ORDERED: INSULIN HUMULIN R 100 UNIT/ML 3ML SQ ONE (16:00)
[2022-02-28] MEDS ORDERED: SODIUM BICARB 50MEQ 50ML VIAL IV SCH (16:00)
[2022-02-28] MEDS ORDERED: KAYEXALATE 15GM/60ML RC ONE (16:00)
[2022-02-28] MEDS ORDERED: KAYEXALATE 15GM/60ML PO ONE ×2 (16:00→23:30)
[2022-02-28] MEDS: FAMOTIDINE 20MG VIAL IV SCH (17:23)
[2022-02-28] MEDS: RIFAXIMIN 550 MG TABLET NG SCH ×2 (17:24→20:25)
[2022-02-28 19:10] LABS: CREATININE 4.6 mg/dL (0.5-1.5); POTASSIUM 5.9 mmol/L (3.5-5.1)
[2022-02-28 20:14] LABS: INR 1.28 (0.85-1.15); PROTHROMBIN TIME 13.8 SEC (9.6-11.6)
[2022-02-28 20:15] LABS: PARTIAL THROMBOPLASTIN TIME 33.6 SEC (26.3-35.5)
[2022-02-28] MEDS: KAYEXALATE 15GM/60ML PO PRN (20:24)
[2022-02-28] MEDS: LACTULOSE 20 GM/30 ML UDCUP PO SCH (20:25)
[2022-02-28] MEDS: LACTULOSE 20 GM/30 ML UDCUP PR SCH ×2 (20:25→21:30)
[2022-02-28] MEDS: OLOPATADINE HCL 0.1% 5ML DROPS OP SCH (20:31)
[2022-02-28] MEDS: LATANOPROST 2.5 ML DROPS OP SCH (21:06)
[2022-02-28] MEDS ORDERED: DEXTROSE 5 % AND 0.9 % NACL 1,000 ML IV ONE (21:57)
[2022-02-28] MEDS: DEXTROSE 5 % AND 0.9 % NACL 1,000 ML IV SCH (22:10)
[2022-02-28 22:54] LABS: CREATININE 4.8 mg/dL (0.5-1.5)
[2022-02-28 22:59] LABS: POTASSIUM 6.2 mmol/L (3.5-5.1)
[2022-02-28] MEDS ORDERED: SODIUM BICARB 8.4% 50ML SYRINGE IVP SCH (23:30)
[2022-03-01] VITALS (25 sets, daily range): BP systolic 102–159; BP diastolic 41–84
[2022-03-01] MEDS ORDERED: 0.9%NACL 50ML IV SCH (01:30)
[2022-03-01] MEDS ORDERED: CALCIUM GLUC 1GM/10ML VIAL IVPB SCH (01:30)
[2022-03-01] MEDS ORDERED: INSULIN HUMULIN R 100 UNIT/ML 3ML IV ONE (01:30)
[2022-03-01] MEDS ORDERED: KAYEXALATE 15GM/60ML NG ONE (01:30)
[2022-03-01] MEDS ORDERED: DEXTROSE 50%-WATER 50 ML DISP.SYRIN IV ONE (01:30)
[2022-03-01 02:03] LABS: BASOPHILS % (AUTO) 0.8 % (0.0-5.0); HEMATOCRIT 25.2 % (42-54); LYMPHOCYTES % (AUTO) 8.3 % (21.0-51.0); MEAN CORPUSCULAR HEMOGLOBIN 33.2 pg (27.0-33.0); MEAN CORPUSCULAR HGB CONC 31.7 g/dL (32.0-36.0); MEAN CORPUSCULAR VOLUME 104.6 fL (79-99); MONOCYTES % (AUTO) 15.7 % (3.0-13.0); PLATELET COUNT (AUTO) 78 K/uL (130-400); RED BLOOD CELL COUNT(AUTO) 2.41 MIL/uL (4.50-6.20); WHITE BLOOD COUNT (AUTO) 4.7 K/uL (4.8-10.8)
[2022-03-01 02:18] LABS: HEMOGLOBIN A1C 4.9 % (4.0-6.0)
[2022-03-01 02:19] LABS: ALBUMIN 3.1 g/dL (3.5-5.0); CREATININE 4.5 mg/dL (0.5-1.5); MAGNESIUM 2.4 mg/dL (1.80-2.40); PHOSPHORUS 5.3 mg/dL (2.5-4.9); POTASSIUM 5.5 mmol/L (3.5-5.1); TOTAL PROTEIN, SERUM 6.5 g/dL (6.0-8.3)
[2022-03-01] MEDS: CEFTRIAXONE 2GM VIAL IVP SCH (02:34)
[2022-03-01 02:38] LABS: INR 1.22 (0.85-1.15); PARTIAL THROMBOPLASTIN TIME 29.2 SEC (26.3-35.5); PROTHROMBIN TIME 12.5 SEC (9.6-11.6)
[2022-03-01] MEDS: ALBUTEROL 0.083% 2.5 MG/3 ML INH IH SCH ×6 (02:44→22:36)
[2022-03-01] MEDS ORDERED: GLUCAGON 1MG KIT 1 MG ML IM PRN (03:00)
[2022-03-01] MEDS ORDERED: DEXTROSE 50%-WATER 50 ML DISP.SYRIN IV PRN (03:00)
[2022-03-01] MEDS: LEVOTHYROXINE 100 MCG TABLET PO SCH (06:35)
[2022-03-01 07:16] LABS: CREATININE 4.3 mg/dL (0.5-1.5); POTASSIUM 5.8 mmol/L (3.5-5.1)
[2022-03-01] MEDS: DEXTROSE 5 % AND 0.9 % NACL 1,000 ML IV SCH ×2 (08:19→18:51)
[2022-03-01] MEDS: RIFAXIMIN 550 MG TABLET NG SCH ×2 (08:36→20:36)
[2022-03-01] MEDS: LACTULOSE 20 GM/30 ML UDCUP PO SCH ×3 (08:36→20:36)
[2022-03-01] MEDS: KAYEXALATE 15GM/60ML PO PRN (08:36)
[2022-03-01] MEDS: FINASTERIDE 5 MG TABLET PO SCH (08:37)
[2022-03-01] MEDS: OLOPATADINE HCL 0.1% 5ML DROPS OP SCH ×2 (08:37→20:38)
[2022-03-01] MEDS: FAMOTIDINE 20MG VIAL IV SCH (08:37)
[2022-03-01] MEDS ORDERED: EPOETIN ALFA-EPBX (NON-ESRD) 10,000 UNIT/ML VIAL SQ SCH (09:00)
[2022-03-01] MEDS: THIAMINE HCL 100 MG TABLET PO SCH (09:09)
[2022-03-01] MEDS: Vitamin B Complex/Vit C/Folic Acid PO SCH (09:09)
[2022-03-01] MEDS: SODIUM BICARB 8.4% 50ML SYRINGE IVP SCH (11:49)
[2022-03-01] MEDS: ZOSYN 3.375GM +NS 50ML IV SCH (11:50)
[2022-03-01 13:14] LABS: CREATININE 4.3 mg/dL (0.5-1.5); POTASSIUM 5.9 mmol/L (3.5-5.1)
[2022-03-01 17:15] LABS: CREATININE 4.3 mg/dL (0.5-1.5)
[2022-03-01 17:25] LABS: POTASSIUM 5.5 mmol/L (3.5-5.1)
[2022-03-01] MEDS: LATANOPROST 2.5 ML DROPS OP SCH (20:39)
[2022-03-01 21:10] LABS: POTASSIUM 4.5 mmol/L (3.5-5.1)
[2022-03-02] VITALS (7 sets, daily range): BP systolic 118–135; BP diastolic 50–77
[2022-03-02] MEDS: CEFTRIAXONE 2GM VIAL IVP SCH (01:39)
[2022-03-02] MEDS: ALBUTEROL 0.083% 2.5 MG/3 ML INH IH SCH ×5 (02:20→23:12)
[2022-03-02 03:51] LABS: BASOPHILS % (AUTO) 0.2 % (0.0-5.0); EOSINOPHILS % (AUTO) 0.2 % (0.0-8.0); HEMATOCRIT 27.7 % (42-54); LYMPHOCYTES % (AUTO) 1.6 % (21.0-51.0); MEAN CORPUSCULAR HEMOGLOBIN 33.2 pg (27.0-33.0); MEAN CORPUSCULAR HGB CONC 32.1 g/dL (32.0-36.0); MEAN CORPUSCULAR VOLUME 103.4 fL (79-99); MONOCYTES % (AUTO) 8.1 % (3.0-13.0); NEUTROPHILS % (AUTO) 89.4 % (40.0-77.0); PLATELET COUNT (AUTO) 98 K/uL (130-400); RED BLOOD CELL COUNT(AUTO) 2.68 MIL/uL (4.50-6.20); RED CELL DISTRIBUTION WIDTH 14.9 % (11.0-15.5); WHITE BLOOD COUNT (AUTO) 12.8 K/uL (4.8-10.8)
[2022-03-02 04:03] LABS: ALBUMIN 2.8 g/dL (3.5-5.0); CREATININE 3.7 mg/dL (0.5-1.5); POTASSIUM 4.4 mmol/L (3.5-5.1); TOTAL PROTEIN, SERUM 6.5 g/dL (6.0-8.3)
[2022-03-02] MEDS: DEXTROSE 5 % AND 0.9 % NACL 1,000 ML IV SCH ×3 (04:30→22:44)
[2022-03-02] MEDS: LEVOTHYROXINE 100 MCG TABLET PO SCH (06:11)
[2022-03-02] MEDS: OLOPATADINE HCL 0.1% 5ML DROPS OP SCH ×2 (08:05→22:20)
[2022-03-02] MEDS: FAMOTIDINE 20MG VIAL IV SCH (08:05)
[2022-03-02] MEDS: Vitamin B Complex/Vit C/Folic Acid PO SCH (08:05)
[2022-03-02] MEDS: FINASTERIDE 5 MG TABLET PO SCH (08:05)
[2022-03-02] MEDS: RIFAXIMIN 550 MG TABLET NG SCH ×2 (08:05→22:20)
[2022-03-02] MEDS: THIAMINE HCL 100 MG TABLET PO SCH (08:05)
[2022-03-02] MEDS: LACTULOSE 20 GM/30 ML UDCUP PO SCH ×3 (08:33→22:26)
[2022-03-02 09:13] LABS: CREATININE 3.4 mg/dL (0.5-1.5); POTASSIUM 4.9 mmol/L (3.5-5.1)
[2022-03-02] MEDS: MEROPENEM 1 GM VIAL IVP SCH ×2 (10:34→22:20)
[2022-03-02] MEDS ORDERED: OCTREOTIDE ACETATE 1,250 MCG in 0.9% NACL 250ML 250 ML IV SCH (11:00)
[2022-03-02 13:28] LABS: HEMATOCRIT 29.8 % (42-54)
[2022-03-02 13:47] LABS: CREATININE 3.5 mg/dL (0.5-1.5)
[2022-03-02] MEDS: SODIUM BICARB 8.4% 50ML SYRINGE IVP SCH (14:00)
[2022-03-02 17:10] LABS: HEMATOCRIT 30.5 % (42-54)
[2022-03-02] MEDS ORDERED: PEG 3350/NA SULF,BICARB,CL/KCL 4000 ML SOLN PO SCH (19:00)
[2022-03-02] MEDS: PANTOPRAZOLE 40 MG/VIAL IVP SCH (22:20)
[2022-03-02] MEDS: LATANOPROST 2.5 ML DROPS OP SCH (22:20)
[2022-03-03] VITALS (23 sets, daily range): BP systolic 110–142; BP diastolic 50–94
[2022-03-03 04:12] LABS: BASOPHILS % (AUTO) 0.3 % (0.0-5.0); EOSINOPHILS % (AUTO) 1.7 % (0.0-8.0); HEMATOCRIT 28.6 % (42-54); LYMPHOCYTES % (AUTO) 3.8 % (21.0-51.0); MEAN CORPUSCULAR HEMOGLOBIN 34.2 pg (27.0-33.0); MEAN CORPUSCULAR HGB CONC 32.9 g/dL (32.0-36.0); MONOCYTES % (AUTO) 8.4 % (3.0-13.0); NEUTROPHILS % (AUTO) 85.2 % (40.0-77.0); PLATELET COUNT (AUTO) 95 K/uL (130-400); RED BLOOD CELL COUNT(AUTO) 2.75 MIL/uL (4.50-6.20); RED CELL DISTRIBUTION WIDTH 15.2 % (11.0-15.5); WHITE BLOOD COUNT (AUTO) 10.8 K/uL (4.8-10.8)
[2022-03-03 04:33] LABS: ALBUMIN 2.6 g/dL (3.5-5.0); CREATININE 3.5 mg/dL (0.5-1.5); POTASSIUM 3.6 mmol/L (3.5-5.1); TOTAL PROTEIN, SERUM 6.2 g/dL (6.0-8.3)
[2022-03-03] MEDS: LEVOTHYROXINE 100 MCG TABLET PO SCH (05:05)
[2022-03-03] MEDS: ALBUTEROL 0.083% 2.5 MG/3 ML INH IH SCH ×4 (06:33→23:59)
[2022-03-03] MEDS: THIAMINE HCL 100 MG TABLET PO SCH (08:43)
[2022-03-03] MEDS: FINASTERIDE 5 MG TABLET PO SCH (08:43)
[2022-03-03] MEDS: PANTOPRAZOLE 40 MG/VIAL IVP SCH ×2 (08:43→21:19)
[2022-03-03] MEDS: LACTULOSE 20 GM/30 ML UDCUP PO SCH ×3 (08:44→21:19)
[2022-03-03] MEDS: Vitamin B Complex/Vit C/Folic Acid PO SCH (08:44)
[2022-03-03] MEDS: RIFAXIMIN 550 MG TABLET NG SCH ×2 (08:44→21:20)
[2022-03-03] MEDS: OLOPATADINE HCL 0.1% 5ML DROPS OP SCH ×2 (08:45→21:21)
[2022-03-03] MEDS: MEROPENEM 1 GM VIAL IVP SCH ×2 (10:43→21:19)
[2022-03-03 12:45] LABS: HEMATOCRIT 29.6 % (42-54)
[2022-03-03] MEDS ORDERED: LIDOCAINE HCL 1% 20 ML VIAL ONE (13:04)
[2022-03-03] MEDS ORDERED: PROPOFOL 10 MG/ML 20ML VIAL IV ONE (13:04)
[2022-03-03] MEDS: DEXTROSE 5%-WATER 1,000 ML IV SCH (13:30)
[2022-03-03] MEDS ORDERED: ONDANSETRON 4MG TABLET PO PRN (16:00)
[2022-03-03] MEDS ORDERED: PEG 3350/NA SULF,BICARB,CL/KCL 4000 ML SOLN PO SCH (16:00)
[2022-03-03] MEDS ORDERED: PHYTONADIONE 10 MG/1 ML AMP IM ONE (16:00)
[2022-03-03] MEDS: LATANOPROST 2.5 ML DROPS OP SCH (21:20)
[2022-03-04 03:45] VITALS: BP 123/56
[2022-03-04] MEDS: DEXTROSE 5%-WATER 1,000 ML IV SCH ×2 (03:48→10:35)
[2022-03-04 05:13] LABS: MEAN CORPUSCULAR HEMOGLOBIN 33.6 pg (27.0-33.0); MEAN CORPUSCULAR HGB CONC 32.2 g/dL (32.0-36.0); MEAN CORPUSCULAR VOLUME 104.2 fL (79-99); PLATELET COUNT (AUTO) 84 K/uL (130-400); RED BLOOD CELL COUNT(AUTO) 2.59 MIL/uL (4.50-6.20); RED CELL DISTRIBUTION WIDTH 15.2 % (11.0-15.5); WHITE BLOOD COUNT (AUTO) 7.8 K/uL (4.8-10.8)
[2022-03-04 05:19] LABS: CREATININE 3.3 mg/dL (0.5-1.5); POTASSIUM 3.5 mmol/L (3.5-5.1)
[2022-03-04 05:21] LABS: INR 1.32 (0.85-1.15); PROTHROMBIN TIME 14.2 SEC (9.6-11.6)
[2022-03-04 05:22] LABS: PARTIAL THROMBOPLASTIN TIME 36.2 SEC (26.3-35.5)
[2022-03-04 05:28] LABS: BAND NEUTROPHILS % (MANUAL) 3 % (0-2); EOSINOPHILS % (MANUAL) 3 % (1-6); LYMPHOCYTES % (MANUAL) 7 % (22-44); MAN.DIFF COMMENT-IMPRESSION MANUAL DIFFERENTIAL; MONOCYTES % (MANUAL) 5 % (2-9); PLATELET MORPHOLOGY COMMENT DECREASED; SEGMENTED NEUTROPHILS % 82 % (40-70)
[2022-03-04] MEDS: LEVOTHYROXINE 100 MCG TABLET PO SCH (06:08)
[2022-03-04] MEDS: ALBUTEROL 0.083% 2.5 MG/3 ML INH IH SCH ×2 (06:52→11:45)
[2022-03-04 07:00] VITALS: BP 129/61
[2022-03-04] MEDS: PANTOPRAZOLE 40 MG/VIAL IVP SCH (10:16)
[2022-03-04] MEDS: THIAMINE HCL 100 MG TABLET PO SCH (10:17)
[2022-03-04] MEDS: MEROPENEM 1 GM VIAL IVP SCH (10:17)
[2022-03-04] MEDS: Vitamin B Complex/Vit C/Folic Acid PO SCH (10:17)
[2022-03-04] MEDS: LACTULOSE 20 GM/30 ML UDCUP PO SCH ×2 (10:17→15:18)
[2022-03-04] MEDS: RIFAXIMIN 550 MG TABLET NG SCH (10:17)
[2022-03-04] MEDS: FINASTERIDE 5 MG TABLET PO SCH (10:17)
[2022-03-04] MEDS: OLOPATADINE HCL 0.1% 5ML DROPS OP SCH (10:18)
[2022-03-04 11:00] VITALS: BP 115/56
[2022-03-04] MEDS ORDERED: PHYTONADIONE 10 MG in 0.9%NACL 50ML 50 ML IVPB SCH (15:30)
[2022-03-04 16:00] VITALS: BP 135/59
== END 2022-03-04 17:30 | DRG 432 ==
LOC: EDH 11:23 → EDHIP 14:49 → 2CH 15:53 → 2AH 03-01 13:00
PROVIDERS: ADMIT Internal Medicine; ATTEND Internal Medicine
PROC: 0DJ08ZZ Inspection of Upper Intestinal Tract, Via Natural or Artificial Opening Endoscopic (ICD-10-PCS; principal; 2022-03-03)
PROC: 0DBP8ZX Excision of Rectum, Via Natural or Artificial Opening Endoscopic, Diagnostic (ICD-10-PCS; 2022-03-03)
PROC: 0DBM8ZX Excision of Descending Colon, Via Natural or Artificial Opening Endoscopic, Diagnostic (ICD-10-PCS; 2022-03-03)
PROC: 0DBN8ZX Excision of Sigmoid Colon, Via Natural or Artificial Opening Endoscopic, Diagnostic (ICD-10-PCS; 2022-03-03)
DX: K74.60 Unspecified cirrhosis of liver (principal); G93.41 Metabolic encephalopathy; I50.43 Acute on chronic combined systolic (congestive) and diastolic (congestive) heart failure; K57.31 Diverticulosis of large intestine without perforation or abscess with bleeding; I13.2 Hypertensive heart and chronic kidney disease with heart failure and with stage 5 chronic kidney disease, or end stage renal disease; T83.592A Infection and inflammatory reaction due to indwelling ureteral stent, initial encounter; D62 Acute posthemorrhagic anemia; D68.4 Acquired coagulation factor deficiency; E87.0 Hyperosmolality and hypernatremia; Z16.24 Resistance to multiple antibiotics; N17.9 Acute kidney failure, unspecified; N18.5 Chronic kidney disease, stage 5; Z20.822 Contact with and (suspected) exposure to COVID-19; E87.5 Hyperkalemia; I25.10 Atherosclerotic heart disease of native coronary artery without angina pectoris; E11.22 Type 2 diabetes mellitus with diabetic chronic kidney disease; E86.9 Volume depletion, unspecified; K72.90 Hepatic failure, unspecified without coma; N41.9 Inflammatory disease of prostate, unspecified; B96.89 Other specified bacterial agents as the cause of diseases classified elsewhere; N40.0 Benign prostatic hyperplasia without lower urinary tract symptoms; D63.8 Anemia in other chronic diseases classified elsewhere; D69.6 Thrombocytopenia, unspecified; E03.9 Hypothyroidism, unspecified; E66.9 Obesity, unspecified; E78.00 Pure hypercholesterolemia, unspecified; E87.8 Other disorders of electrolyte and fluid balance, not elsewhere classified; Z95.1 Presence of aortocoronary bypass graft; Z91.19 Patient's noncompliance with other medical treatment and regimen; Z87.891 Personal history of nicotine dependence; Z82.49 Family history of ischemic heart disease and other diseases of the circulatory system; Z79.899 Other long term (current) drug therapy; Z79.84 Long term (current) use of oral hypoglycemic drugs
CPT/HCPCS: 36415; 43235; 45380; 74230; 76770; 80048; 80053; 81001; 82140; 82270; 82306; 82550; 82607; 82746; 82948; 83036; 83540; 83550; 83605; 83735; 83874; 84100; 84145; 84484; 85014; 85018; 85025; 85610; 85730; 87040; 87070; 87076; 87077; 87088; 87186; 87635; 92610; 92611; 93005; 94640; 94664; 97039; 99291; C9113; G0378; J0610; J0696; J1815; J2185; J2354; J2543; J2704; J3430; J3490; J7030; J7042; J7050; J7070

== ENCOUNTER 2022-04-04 06:38 | Day surgery (SDC) | payer OTHER ==
[~2022-04-04 06:38] MED LIST changes: +FINA5TAB41 PO; +FURO20TA4 PO; +LACT10SO9 PO; +LATA2.5D14 OP; +LEVO100C4 PO; +METO5TAB2 PO; +PANT40GR PO; +RIFA550T PO; +SPIR25TA6 PO
[2022-04-04] MEDS ORDERED: LIDOCAINE HCL MPF 1% 5ML VIAL ONE (07:15)
[2022-04-04] MEDS ORDERED: HEPARIN 1,000 UNIT VIAL ONE (07:15)
[2022-04-04] MEDS ORDERED: LIDOCAINE HCL 1% 10 ML VIAL ONE (07:17)
[2022-04-04] MEDS ORDERED: 0.9%NACL 1000ML 1,000 ML IV ONE (07:55)
[2022-04-04 08:30] VITALS: BP 115/61
[2022-04-04 08:58] VITALS: BP 118/60
[2022-04-04 09:15] VITALS: BP 118/63
[2022-04-04 09:33] VITALS: BP 118/68
== END 2022-04-04 10:00 | disposition home or self-care (01) ==
LOC: DAH 06:38 → CLH 06:38
PROVIDERS: ATTEND Internal Medicine Critical Care Medicine
DX: E11.22 Type 2 diabetes mellitus with diabetic chronic kidney disease (principal); I13.2 Hypertensive heart and chronic kidney disease with heart failure and with stage 5 chronic kidney disease, or end stage renal disease; I50.9 Heart failure, unspecified; N18.6 End stage renal disease; M10.9 Gout, unspecified; K74.69 Other cirrhosis of liver; G47.33 Obstructive sleep apnea (adult) (pediatric); E78.5 Hyperlipidemia, unspecified; N40.0 Benign prostatic hyperplasia without lower urinary tract symptoms; I25.10 Atherosclerotic heart disease of native coronary artery without angina pectoris; Z99.2 Dependence on renal dialysis; Z95.0 Presence of cardiac pacemaker; Z87.01 Personal history of pneumonia (recurrent)
CPT/HCPCS: 36558; 77001; 82948; C1750; C1894; J7030; J3490 ×2; J1644 ×2; A4215; A4222; A4221; A4663; A4216; A4606; A4223 ×3